=== PATIENT | female | born 1995 | race Caucasian/White ===

== ENCOUNTER 2017-11-14 17:04 | Emergency (ER) | payer OTHER ==
[2017-11-14] MEDS ORDERED: NS 0.9% 1000 ML* 1,000 ML IV ONE (18:04)
[2017-11-14 18:45] LABS: ABS Basophils 0 10^3/ul (0-0.2); ABS Eosinophils 0 10^3/ul (0-0.6); ABS Lymphocytes 0.6 10^3/ul (1.0-4.8); ABS Monocytes 0.7 10^3/ul (0-0.8); ABS Neutrophils 2.6 10^3/ul (1.5-7.7); ABS Nucleated RBC 0 10^3/ul; Eosinophil % 0.5 % (0-6); Hematocrit 37 % (35-47); Hemoglobin 12.7 g/dl (12.0-16.0); Lymphocyte % 14.1 % (25-47); Mean Corpuscular HGB Conc 34 g/dl (31-36); Mean Corpuscular Hemoglobin 30 pg (27-31); Mean Corpuscular Volume 88 fL (80-97); Mean Platelet Volume 8 um3 (7.4-10.4); Nucleated Red Blood Cells % 0; Platelet Count 118 10^3/ul (150-450); Red Blood Count 4.23 10^6/ul (4.0-5.4); Red Cell Distribution Width 12 % (10.5-15); White Blood Count 3.9 10^3/ul (3.5-10.8)
[2017-11-14 18:59] LABS: EGFR Non-African American 99.5 (>60)
--- NOTE | 2017-11-14 19:10 | RAD ---
INDICATION: Cough and fever following recent trip to [place] COMPARISON: None TECHNIQUE: PA and lateral views of the chest were obtained. FINDINGS: The heart and mediastinum are normal in size and contour. The lungs are grossly clear. There is no evidence of large pleural effusion. Visualized bones are normal for the patient's age. There is no radiographic evidence of free air beneath the diaphragm IMPRESSION: No radiographic evidence of acute cardiopulmonary disease.
--- NOTE | 2017-11-14 19:17 | ED ---
Influenza-Like Illness - HPI Summary HPI Summary: Patient here with flulike symptoms 5+ days. Started as dry scratchy throat. Had nausea with vomiting on Wednesday and - stomach sore but eating and drinking since. This has progressed into cough. Reports she had a fever Wednesday which has been coming and going. This fever triggers body wide achiness , pain, headache and worsening of sore throat. Currently she denies nausea vomiting or diarrhea, abdominal pain, chest pain, shortness of breath or headache, neck stiffness. She does admit when she gets coughing, her chest feels tight. She also reports some back pain in thoracic area. Furthermore she comments that she is "coughing up blood at times". Tried to discern if this was mucus tinged blood or clots of blood - she thinks it's the former but cannot be clear. She does admit a history of travel to [place] in the past 30 days. Also admits she took plan B on November 03 2017 - LMP Oct 17 2017 and feels like she might be getting it again soon. She denies calf pain and no previous clots or bleeding disorders. She she does smoke occasionally but has not smoked since her illness started. She did not receive the influenza vaccine. She is a student at [employer]. No h/o TB or other pulmonary d/o's. Imms are UTD otherwise. - History of Current Complaint Chief Complaint: EDFluSymptoms Time Seen by Provider: 11/14/17 17:38 Hx Obtained From: Patient - Allergy/Home Medications Allergies/Adverse Reactions: Allergies Allergy/AdvReac Type Severity Reaction Status Date / Time No Known Allergies Allergy Verified 11/14/17 17:22 PMH/Surg Hx/FS Hx/Imm Hx Previously Healthy: Yes Endocrine/Hematology History: Denies: Hx Anticoagulant Therapy, Hx Blood Disorders, Hx Diabetes, Hx Anemia , Hx Unexplained Bleeding, Hx Coagulopothy Cardiovascular History: Denies: Hx Congenital Heart Disease Respiratory History: Reports: Hx Pneumonia Denies: Hx Asthma, Hx Chronic Obstructive Pulmonary Disease (COPD), Hx Pulmonary Embolism GI History: Denies: Hx Cirrhosis, Hx Gastroesophageal Reflux Disease Musculoskeletal History: Denies: Hx Back Problems Psychiatric History: Denies: Hx Eating Disorder, Hx of Violent Episodes Against Others - Immunization History Immunizations Up to Date: Yes Infectious Disease History: No Infectious Disease History: Denies: Traveled Outside the [place] in Last 30 Days - Family History Known Family History: Positive: None - Social History Occupation: Student Lives: Dormitory/Roommates Alcohol Use: Occasionally Hx Substance Use: No Substance Use Type: Reports: None Hx Tobacco Use: Yes Smoking Status (MU): Current Some Day Smoker Review of Systems Positive: Fever, Chills Positive: Sore Throat, Nasal Discharge. Negative: Ear Ache Cardiovascular: Negative Positive: Cough. Negative: Shortness Of Breath Gastrointestinal: Negative Positive: no symptoms reported Positive: Arthralgia Skin: Negative Negative: Rash Neurological: Negative Psychological: Normal All Other Systems Reviewed And Are Negative: Yes Physical Exam Triage Information Reviewed: Yes Vital Signs On Initial Exam: Initial Vitals Temp Pulse Resp BP Pulse Ox 99 F 86 18 81/57 98 11/14/17 17:16 11/14/17 17:16 11/14/17 17:16 11/14/17 17:16 11/14/17 17:16 Vital Signs Reviewed: Yes Appearance: Positive: No Pain Distress, Ill-Appearing - appears fatigued, Thin Skin: Positive: Warm, Skin Color Reflects Adequate Perfusion, Dry - no rash observed Head/Face: Positive: Normal Head/Face Inspection - Sinuses NTTP Eyes: Positive: Normal, EOMI, Conjunctiva Clear. Negative: Conjunctiva Inflammed, Discharge ENT: Positive: Hearing grossly normal, Pharyngeal erythema - cobblestoning, TMs normal. Negative: Nasal congestion, Nasal drainage, Tonsillar swelling, Tonsillar exudate Neck: Positive: Supple, Nontender, Enlarged Nodes @ - shotty CC LNs B/L Respiratory/Lung Sounds: Positive: Clear to Auscultation, Breath Sounds Present. Negative: Decreased Breath Sounds, Rales, Rhonchi, Stridor, Tracheal Deviation, Wheezes Cardiovascular: Positive: Normal, RRR, Pulses are Symmetrical in both Upper and Lower Extremities, S1, S2. Negative: Murmur, Rub Abdomen Description: Positive: No Organomegaly, Soft, Other: - mild TTP over epigastrum and LUQ - no rebounding. Negative: Distended, Guarding Bowel Sounds: Positive: Present Musculoskeletal: Positive: Normal, Strength/ROM Intact Neurological: Positive: Normal, Sensory/Motor Intact, Alert, Oriented to Person Place, Time, CN Intact II-III Psychiatric: Positive: Normal Diagnostics - Vital Signs Vital Signs Temp Pulse Resp BP Pulse Ox 11/14/17 18:37 93/59 11/14/17 17:16 99 F 86 18 81/57 98 - Laboratory Lab Results: Lab Results 11/14/17 11/14/17 11/14/17 Range/Units 18:32 18:32 18:32 WBC 3.9 (3.5-10.8) 10^3/ul RBC 4.23 (4.0-5.4) 10^6/ul Hgb 12.7 (12.0-16.0) g/dl Hct 37 (35-47) % MCV 88 (80-97) fL MCH 30 (27-31) pg MCHC 34 (31-36) g/dl RDW 12 (10.5-15) % Plt Count 118 L (150-450) 10^3/ul MPV 8 (7.4-10.4) um3 Neut % (Auto) 66.7 (38-83) % Lymph % (Auto) 14.1 L (25-47) % [place] % (Auto) 18.2 H (1-9) % Eos % (Auto) 0.5 (0-6) % Baso % (Auto) 0.5 (0-2) % Absolute Neuts (auto) 2.6 (1.5-7.7) 10^3/ul Absolute Lymphs (auto) 0.6 L (1.0-4.8) 10^3/ul Absolute Monos (auto) 0.7 (0-0.8) 10^3/ul Absolute Eos (auto) 0 (0-0.6) 10^3/ul Absolute Basos (auto) 0 (0-0.2) 10^3/ul Absolute Nucleated RBC 0 10^3/ul Nucleated RBC % 0 D-Dimer, Quantitative (Less Than 230) ng/mL Sodium 134 (133-145) mmol/L Potassium 4.0 (3.5-5.0) mmol/L Chloride 102 (101-111) mmol/L Carbon Dioxide 24 (22-32) mmol/L Anion Gap 8 (2-11) mmol/L BUN 8 (6-24) mg/dL Creatinine 0.72 (0.51-0.95) mg/dL Est GFR ( Amer) 128.0 (>60) Est GFR (Non-Af Amer) 99.5 (>60) BUN/Creatinine Ratio 11.1 (8-20) Glucose 105 H (70-100) mg/dL Lactic Acid 1.7 (0.5-2.0) mmol/L Calcium 8.8 (8.6-10.3) mg/dL Magnesium 2.0 (1.9-2.7) mg/dL Total Bilirubin 0.40 (0.2-1.0) mg/dL AST 12 L (13-39) U/L ALT 6 L (7-52) U/L Alkaline Phosphatase 34 (34-104) U/L Total Protein 6.8 (6.4-8.9) g/dL Albumin 3.9 (3.2-5.2) g/dL Globulin 2.9 (2-4) g/dL Albumin/Globulin Ratio 1.3 (1-3) Beta HCG, Quant < 0.60 mIU/mL Group A Strep Rapid (Negative) 11/14/17 11/14/17 Range/Units 18:32 18:47 WBC (3.5-10.8) 10^3/ul RBC (4.0-5.4) 10^6/ul Hgb (12.0-16.0) g/dl Hct (35-47) % MCV (80-97) fL MCH (27-31) pg MCHC (31-36) g/dl RDW (10.5-15) % Plt Count (150-450) 10^3/ul MPV (7.4-10.4) um3 Neut % (Auto) (38-83) % Lymph % (Auto) (25-47) % [place] % (Auto) (1-9) % Eos % (Auto) (0-6) % Baso % (Auto) (0-2) % Absolute Neuts (auto) (1.5-7.7) 10^3/ul Absolute Lymphs (auto) (1.0-4.8) 10^3/ul Absolute Monos (auto) (0-0.8) 10^3/ul Absolute Eos (auto) (0-0.6) 10^3/ul Absolute Basos (auto) (0-0.2) 10^3/ul Absolute Nucleated RBC 10^3/ul Nucleated RBC % D-Dimer, Quantitative < 200 (Less Than 230) ng/mL Sodium (133-145) mmol/L Potassium (3.5-5.0) mmol/L Chloride (101-111) mmol/L Carbon Dioxide (22-32) mmol/L Anion Gap (2-11) mmol/L BUN (6-24) mg/dL Creatinine (0.51-0.95) mg/dL Est GFR ( Amer) (>60) Est GFR (Non-Af Amer) (>60) BUN/Creatinine Ratio (8-20) Glucose (70-100) mg/dL Lactic Acid (0.5-2.0) mmol/L Calcium (8.6-10.3) mg/dL Magnesium (1.9-2.7) mg/dL Total Bilirubin (0.2-1.0) mg/dL AST (13-39) U/L ALT (7-52) U/L Alkaline Phosphatase (34-104) U/L Total Protein (6.4-8.9) g/dL Albumin (3.2-5.2) g/dL Globulin (2-4) g/dL Albumin/Globulin Ratio (1-3) Beta HCG, Quant mIU/mL Group A Strep Rapid Negative (Negative) Result Diagrams: 11/14/17 18:32 02 18:32 Lab Statement: Any lab studies that have been ordered have been reviewed, and results considered in the medical decision making process. Flu Symptom Course/Dx - Course Course Of Treatment: Patient presents with flu-like symptoms for about a week. Her swabs and labs are non-impressive for dehydration, influenza, strep, mononucleosis. Her chest x-ray was clear of TB and pneumonia. Her d-dimer was negative. She initially appeared fatigued with a soft blood pressure so IV fluids were ordered. She appears to be doing well while lying on stretcher in the fast track. Suspect viral syndrome without definitive cause this point in time however she does attend college and has traveled recently which could have been lin for her to contract this. Encouraged supportive care with acetaminophen alternating with ibuprofen, plenty of fluids, electrolyte hydration with nourishment, rest. Advised to follow-up at [facility] if symptoms persists however if danger signs or symptoms present, she may return to the emergency department. - Diagnoses Provider Diagnoses: Viral syndrome Discharge - Discharge Plan Condition: Stable Disposition: HOME Patient Education Materials: Viral Syndrome (ED) Forms: *School Release Referrals: [facility] - Duy MARTINEZ [Primary Care Provider] - Additional Instructions: You appear to have a viral syndrome. This may take 7-14 days to run its course. Rest, stay hydrated with water, Gatorade, chicken broth, etc. He may alternate Tylenol with ibuprofen for fevers chills pain You may also implement any of the following to aid in your process of healing: Perform nasal washes/netti pot 2 times per day with 8 ounces of warm water plus a quarter teaspoon of salt or saline nasal spray as needed Perform throat gargles with warm salt water as needed Drink 60+ ounces of water daily Sleep 8+ hours per night Avoid dairy and sugar Drink hot herbal/decaf tea with lemon and honey Drink chicken broth (preferably organic, free range chicken) Using humidifier in your house, but especially near bed at night. You may also keep home temperature at 68F or less. Try facial steam with or without eucalyptus essential oil or Vicks vapor rub for decongestion Avoid smoke, candles, perfume/cologne, air freshener's, scented lotions, etc. Cough lozenges Delsym cough syrup to suppress her cough Consider taking vitamin D 3 5000 IUs and vitamin C 1000 mg every day daily during illness If you are started on antibiotics, start taking probiotics in between and after completion of antibiotics (i.e. yogurt and/or capsule of L acidophilus, L. Bifidus, L casei, etc. - make sure to get these from the refrigerated section as they are live active cultures) If her symptoms persist, he may follow up with [facility]. However if you experience shortness of breath chest pain fever despite taking ibuprofen or Tylenol vomiting diarrhea or severe abdominal pain, headache or neck stiffness ,return to the emergency department
[2017-11-14] MEDS ORDERED: Ibuprofen TAB* 600 MG PO ONE (20:57)
[2017-11-14 21:10] VITALS: BP 99/62
== END 2017-11-14 21:14 | disposition home or self-care (01) ==
LOC: ED 17:04
DX: B34.9 Viral infection, unspecified (principal)
CPT/HCPCS: 36415; 71046; 80053; 83605; 83735; 84702; 85025; 85379; 86308; 87502; 87651; 96360; 99283; A9270-GY

== ENCOUNTER 2018-01-18 13:07 | Emergency (ER) | payer OTHER ==
[2018-01-18] MEDS ORDERED: Acetaminophen TAB* 325 MG PO ONE (14:11)
[2018-01-18] MEDS ORDERED: Amoxicillin PO (*) 250 MG CAP PO ONE (14:11)
--- NOTE | 2018-01-18 14:14 | ED ---
Throat Pain/Nasal Congestion - HPI Summary HPI Summary: 22 female presents ED with complaints of fever, sore throat, body aches that have been ongoing for the past 2 days and worsening. Has experienced decreased appetite as well. States she last took Tylenol around 12 AM and ibuprofen 6 AM today. States fever has been 38.5C. No known sick contacts. Denies cough and congestion. No nausea or vomiting. No trouble breathing or chest pain. No rash. Did not have flu shot this year. No other past medical history other complaints. - History of Current Complaint Chief Complaint: EDFluSymptoms Time Seen by Provider: 01/18/18 13:33 Hx Obtained From: Patient Onset/Duration: Sudden Onset, Lasting Days, Still Present, Worse Since Severity: Moderate Associated Signs And Symptoms: Positive: Dysphagia Cough: None - Allergies/Home Medications Allergies/Adverse Reactions: Allergies Allergy/AdvReac Type Severity Reaction Status Date / Time No Known Allergies Allergy Verified 01/18/18 13:18 Home Medications: Home Medications FLUoxetine CAP* [PROzac CAP*] 20 mg PO DAILY 01/18/18 [History Confirmed ] Valproic Acid CAP(*) [Depakene CAP(*)] PO DAILY 01/18/18 [History] PMH/Surg Hx/FS Hx/Imm Hx Endocrine/Hematology History: Denies: Hx Anticoagulant Therapy, Hx Blood Disorders, Hx Diabetes, Hx Anemia , Hx Unexplained Bleeding Cardiovascular History: Denies: Hx Congenital Heart Disease Respiratory History: Reports: Hx Pneumonia Denies: Hx Asthma, Hx Chronic Obstructive Pulmonary Disease (COPD), Hx Pulmonary Embolism GI History: Denies: Hx Cirrhosis, Hx Gastroesophageal Reflux Disease Musculoskeletal History: Denies: Hx Back Problems Psychiatric History: Denies: Hx Eating Disorder, Hx of Violent Episodes Against Others - Surgical History Surgery Procedure, Year, and Place: None - Immunization History Date of Influenza Vaccine: did not receive Immunizations Up to Date: Yes Infectious Disease History: No Infectious Disease History: Denies: Traveled Outside the [place] in Last 30 Days - Family History Known Family History: Positive: None - Social History Alcohol Use: Occasionally Hx Substance Use: No Substance Use Type: Reports: None Hx Tobacco Use: Yes Smoking Status (MU): Current Some Day Smoker Review of Systems Positive: Fever, Chills Positive: Sore Throat Cardiovascular: Negative Respiratory: Negative Positive: Other - decreased appetite Positive: Myalgia Skin: Negative Positive: Headache All Other Systems Reviewed And Are Negative: Yes Physical Exam Triage Information Reviewed: Yes Vital Signs On Initial Exam: Initial Vitals Temp Pulse Resp BP Pulse Ox 99.9 F 103 16 99/63 98 01/18/18 13:13 01/18/18 13:13 01/18/18 13:13 01/18/18 13:13 01/18/18 13:13 Low-grade temp and tachycardia noted Vital Signs Reviewed: Yes Appearance: Positive: Well-Appearing, No Pain Distress, Well-Nourished Skin: Positive: Warm, Skin Color Reflects Adequate Perfusion, Dry. Negative: Cold, Cyanosis @, Pale, Erythema @ Head/Face: Positive: Normal Head/Face Inspection Eyes: Positive: Conjunctiva Clear ENT: Positive: Hearing grossly normal, Pharyngeal erythema - Moderate, TMs normal, Tonsillar swelling - Moderate bilateral, Tonsillar exudate - Moderate bilateral, Uvula midline - no peritonsillar abscess, Other - odor similar to strep infection noted Dental: Positive: Cervical Lymphadenopathy Neck: Positive: Nontender, Enlarged Nodes @ - tonsillar and anterior cervical lymphadenopathy Respiratory/Lung Sounds: Positive: Clear to Auscultation, Breath Sounds Present. Negative: Rales, Rhonchi, Wheezes Cardiovascular: Positive: Normal, RRR, Pulses are Symmetrical in both Upper and Lower Extremities. Negative: Murmur, Rub Abdomen Description: Positive: Nontender, No Organomegaly, Soft Bowel Sounds: Positive: Present Musculoskeletal: Positive: Normal, Strength/ROM Intact Neurological: Positive: Normal, Sensory/Motor Intact, Alert, Oriented to Person Place, Time, NV Bundle Intact Distally, Normal Gait Diagnostics - Vital Signs Vital Signs Temp Pulse Resp BP Pulse Ox 01/18/18 13:34 109 96 01/18/18 13:33 96/64 01/18/18 13:13 99.9 F 103 16 99/63 98 - Laboratory Lab Results: Lab Results 01/18/18 Range/Units 13:35 Influenza A (Rapid) Negative (Negative) Influenza B (Rapid) Negative (Negative) Lab Statement: Any lab studies that have been ordered have been reviewed, and results considered in the medical decision making process. Re-Evaluation - Re-Evaluation First Eval Re-Evaluation Time: 13:55 Change: Unchanged - Patient updated on results and agrees with plan and understands. EENT Course/Dx - Course Course Of Treatment: Influenza and strep cultures obtained influenza negative strep invalid however due to Centor criteria and physical exam findings we'll treat for strep with amoxicillin. Given first dose of amoxicillin and Tylenol while in ED. Continue at home increase fluid intake and get plenty or rest. Educated on hygiene precautions as it is very contagious. Chloraseptic Jackson and saltwater gargles. Aware worsening signs and symptoms watch out for follow- up with PCP. - Diagnoses Provider Diagnoses: Strep pharyngitis Discharge - Sign-Out/Discharge Documenting (check all that apply): Discharge - Discharge Plan Condition: Stable Disposition: HOME Prescriptions: Amoxicillin PO (*) [Amoxicillin 500 MG CAP*] 500 mg PO Q12H #19 cap Patient Education Materials: Strep Throat (ED) Referrals: [facility] - Duy MARTINEZ [Primary Care Provider] - Additional Instructions: Take prescribed medication as directed until entire dose is finished. Even if symptoms improve. Take today's second dose tonight before you go to bed as you received your first dose in ED. Increase fluid intake and get plenty rest. Continue ibuprofen/Tylenol alternating for fever and pain. Recommend Chloraseptic Jackson sold [id number] helps soothe sore throat. Saltwater gargles. Good oral hygiene. And changing toothbrush after 5-7 days of treatment. Do not share drinks as this is very contagious. Follow-up with PCP if any palpitations. Any new or worsening symptoms please seek medical attention. - Billing Disposition and Condition Condition: STABLE Disposition: HOME
[2018-01-18 14:29] VITALS: BP 111/68
== END 2018-01-18 14:48 | disposition home or self-care (01) ==
LOC: ED 13:07
DX: J02.0 Streptococcal pharyngitis (principal); Z72.0 Tobacco use
CPT/HCPCS: 87502; 99282; A9270-GY

== ENCOUNTER 2018-09-16 09:06 | Inpatient (IN) | payer OTHER ==
--- NOTE | 2018-09-16 09:19 | ED ---
Substance Abuse/Use - HPI Summary HPI Summary: Level 5 caveat: Unable to obtain complete HPI due to Unresponsiveness The pt is a 23 y/o female brought in by ambulance to [facility] c/o substance overdose.She last talked to her friend in [place] yesterday night but lost contact. During a safety check, EMS found her unresponsive in her apartment with several bottle pills suspected to be Depakene (Valproic Acid) and another unknown medication at the site. There was also a suicide note mostly in Prydeinig with a section in Monegasque saying Dont save me this will be mercy. The time of ingestion is unknown. The pt was breathing independently en route. EMS administered 4 Narcane (2 nasal and 2 IV). Home Medications Medication Instructions Recorded Confirmed Type Amoxicillin PO (*) [Amoxicillin 500 mg PO Q12H #19 cap 01/18/18 Rx 500 MG CAP*] FLUoxetine CAP* [PROzac CAP*] 20 mg PO DAILY 01/18/18 01/18/18 History Valproic Acid CAP(*) [Depakene PO DAILY 01/18/18 History CAP(*)] - History Of Current Complaint Chief Complaint: EDOverdose Stated Complaint: OVERDOSE Hx Obtained From: EMS Hx From Patient Unobtainable Due To: Other - Unresponsiveness Onset/Duration of Drug/ETOH Abuse: Hours Ingestion History: Approximate Time Of Ingestion - Unknown - Allergies/Home Medications Allergies/Adverse Reactions: Allergies Allergy/AdvReac Type Severity Reaction Status Date / Time No Known Allergies Allergy Verified 01/18/18 13:18 PMH/Surg Hx/FS Hx/Imm Hx Previously Healthy: No - Level 5 caveat: Unable to obtain complete PMHx due to Unresponsiveness Endocrine/Hematology History: Denies: Hx Anticoagulant Therapy, Hx Blood Disorders, Hx Diabetes, Hx Anemia , Hx Unexplained Bleeding Cardiovascular History: Denies: Hx Congenital Heart Disease Respiratory History: Reports: Hx Pneumonia Denies: Hx Asthma, Hx Chronic Obstructive Pulmonary Disease (COPD), Hx Pulmonary Embolism GI History: Denies: Hx Cirrhosis, Hx Gastroesophageal Reflux Disease Musculoskeletal History: Denies: Hx Back Problems Psychiatric History: Denies: Hx Eating Disorder, Hx of Violent Episodes Against Others - Cancer History Cancer Type, Location and Year: None - Surgical History Surgery Procedure, Year, and Place: None - Immunization History Date of Influenza Vaccine: did not receive - Family History Known Family History: Positive: Unknown - Social History Alcohol Use: Occasionally Hx Substance Use: No Substance Use Type: Reports: None Hx Tobacco Use: Yes Smoking Status (MU): Current Some Day Smoker Review of Systems - ROS Summary Review of Systems Summary: Level 5 caveat: Unable to obtain complete ROS due to Unresponsiveness Constitutional: Other - Positve: Unresponsiveness Respiratory: Negative - Dyspnea All Other Systems Reviewed And Are Negative: No Physical Exam - Summary Physical Exam Summary: Level 5 caveat: Unable to obtain complete PE due to Unresponsiveness Appearance: The patient is well-nourished in no acute distress and in no acute pain. Skin: The skin is warm and dry and skin color reflects adequate perfusion. HEENT: The head is normocephalic and atraumatic.Eyes are open.The pupils are pinpoint. Gag reflex present. Corneal reflex present. The conjunctivae are clear and without drainage. Nares are patent and without drainage. Mouth reveals moist mucous membranes and the throat is without erythema and exudate. The external ears are intact. The ear canals are patent and without drainage. The tympanic membranes are intact. Neck: The neck is supple with full range of motion and non-tender. There are no carotid bruits. There is no neck vein distension. Respiratory: Chest is non-tender. Lungs are clear to auscultation and breath sounds are symmetrical and equal. Cardiovascular: Heart is regular rate and rhythm. There is no murmur or rub auscultated. There is no peripheral edema and pulses are symmetrical and equal. Abdomen: The abdomen is soft and non-tender. There are normal bowel sounds heard in all four quadrants and there is no organomegaly palpated. Musculoskeletal: There is no back tenderness noted. Extremities are non-tender with full range of motion. There is good capillary refill. There is no peripheral edema or calf tenderness elicited. Neurological: Patient withdraws from pain.The patient has symmetrical motor strength in all four extremities. Cranial nerves are grossly intact. Deep tendon reflexes are symmetrical and equal in all four extremities. Psychiatric: The patient has an appropriate affect and does not exhibit any anxiety or depression. GCS:9 Triage Information Reviewed: Yes Vital Signs On Initial Exam: Initial Vital Signs Temp 98.2 F 09/16/18 09:17 Pulse 120 09/16/18 09:17 Resp 16 09/16/18 09:17 BP 105/58 09/16/18 09:17 Pulse Ox 100 09/16/18 09:17 Vital Signs Reviewed: Yes Diagnostics - Laboratory Result Diagrams: 09/16/18 09:10 09/16/18 09:10 Lab Statement: Any lab studies that have been ordered have been reviewed, and results considered in the medical decision making process. - Radiology CXR Radiology Interpretation Completed By: Radiologist Summary of Radiographic Findings: IMPRESSION: NO ACTIVE CARDIOPULMONARY DISEASE NOTED. The ED physician reviewed this radiology report. - CT Brain CT CT Interpretation Completed By: Radiologist Summary of CT Findings: IMPRESSION: NO ACUTE INTRACRANIAL PATHOLOGY. The ED physician reviewed this radiology report. - EKG 09:37 Cardiac Rate: Tachycardia - 126 bpm EKG Rhythm: Sinus Tachycardia Re-Evaluation - Re-Evaluation First Eval Re-Evaluation Time: 13:07 Change: Improved Second Eval Re-Evaluation Time: 13:30 Comment: Dr. Missy Parra saw the pt in the ED. Course/Dx - Course Course Of Treatment: Ms. Christensen was brought to the emergency department by ambulance and met in room 14 by myself. At that point she had her eyes open, would withdraw from pain and was not talking giving her a GCS score of 9. She was managing her airway well with a good gag reflex and corneal reflexes. Her pupils were pinpoint. There was no sign of trauma. Labs were obtained and generally within normal limits as was CT scan of her brain and chest x-ray. Her QTC was fine on ECG. 2 bottles were brought in with her. One contains some sort of sliced root and near the right pills. Left elbow has were labeled in Prydeinig with one word in Monegasque - Depekene. An Internet search reveals this to be Depakote. Our initial concern was that this was a valproic acid overdose and a Depakote level returned at 56 with an ammonia level elevated at 73. Recommendation by poison control was to give l-carnitine however we do not have this. I spoke with poison control about the need for transfer and they recommended repeating at 2 hours the ammonia and Depakote and if they were going down she would not need it. He repeat levels were 51 and 53. The patient did continue to remain in her comatose condition and as she was maintaining her airway well I held off on intubation. Dr. Parra was consulted and came to the department to evaluate the patient. Dr. Rhodes was consulted and also came to the department and evaluated the Patient. He recommended an EEG but felt that this was likely metabolic. - Diagnoses Provider Diagnoses: Overdose of drug/medicinal substance, Coma - Physician Notifications Discussed Care Of Patient With: Shweta Sanchez - Hospitalist Time Discussed With Above Provider: 11:10 Instructed by Provider To: MD Will See In ED - Critical Care Time Critical Care Time: 30-74 min Discharge - Sign-Out/Discharge Documenting (check all that apply): Patient Departure - Discharge Plan Condition: Stable Disposition: ADMITTED TO [facility] Referrals: [facility] - Duy MARTINEZ [Primary Care Provider] - - Billing Disposition and Condition Condition: STABLE Disposition: Admitted to [facility] - Attestation Statements Document Initiated by Scribe: Yes Documenting Scribe: Nevaeh Walker Provider For Whom Miguel is Documenting (Include Credential): Dr. Evert Olson MD Scribe Attestation: Nevaeh Brandon , scribed for Dr. Evert Olson MD on 09/16/18 at 1458. Scribe Documentation Reviewed: Yes Provider Attestation: The documentation as recorded by the stephanieibNevaeh osborne accurately reflects the service I personally performed and the decisions made by me, Dr. Evert Olson MD Status of Scribe Document: Viewed
[2018-09-16 09:21] LABS: ABS Basophils 0 10^3/ul (0-0.2); ABS Eosinophils 0.1 10^3/ul (0-0.6); ABS Lymphocytes 1.1 10^3/ul (1.0-4.8); ABS Monocytes 0.4 10^3/ul (0-0.8); ABS Nucleated RBC 0 10^3/ul; Eosinophil % 2.8 %; Hematocrit 36 % (35-47); Hemoglobin 12.3 g/dl (12.0-16.0); Lymphocyte % 23.1 %; Mean Corpuscular HGB Conc 35 g/dl (31-36); Mean Corpuscular Hemoglobin 30 pg (27-31); Mean Corpuscular Volume 87 fL (80-97); Nucleated Red Blood Cells % 0; Platelet Count 136 10^3/ul (150-450); Red Blood Count 4.09 10^6/ul (4.00-5.40); Red Cell Distribution Width 11 % (10.5-15); White Blood Count 4.7 10^3/ul (3.5-10.8)
[2018-09-16 09:38] LABS: EGFR Non-African American 119.5 (>60)
[2018-09-16 11:01] LABS: Urine Appearance Clear; Urine Blood 1+ (Negative); Urine Color Yellow; Urine Ketones Trace (Negative); Urine Protein Negative (Negative); Urine Red Blood Cell Trace(0-2/hpf) (Absent); Urine Specific Gravity 1.013 (1.010-1.030); Urine Urobilinogen Negative (Negative); Urine White Blood Cell Trace(0-5/hpf) (Absent)
[2018-09-16] MEDS: NS 0.9% 1000 ML* 1,000 ML IV ONE ×2 (11:32→13:27)
[2018-09-16] MEDS ORDERED: Naloxone* 0.4 MG/ML 1 ML VIAL IV ONE (13:03)
[2018-09-16] MEDS ORDERED: LORazepam INJ* 2 MG/ML 1 ML VIAL IV PUSH PRN (13:50)
[2018-09-16] MEDS ORDERED: KCL 20 MEQ/100 ML IVPREMIX* 20 MEQ/100 ML BAG IV ONE (13:56)
[2018-09-16] MEDS ORDERED: Famotidine IV * 20 MG in NS 0.9% 100 ML* 100 ML IVPB SCH (14:00)
[2018-09-16 14:17] LABS: INR 1.1 (0.77-1.02)
[2018-09-16] MEDS: Famotidine IV* 10 MG/ML 2 ML (20 mg) IV SCH (14:45)
[2018-09-16] MEDS: Heparin VIAL(*) 5000 UNITS/ML VIAL (FIVE THOUSAND) SUBCUT SCH ×2 (14:45→22:51)
[2018-09-16 16:32] LABS: ABS Basophils 0 10^3/ul (0-0.2); ABS Eosinophils 0.1 10^3/ul (0-0.6); ABS Lymphocytes 0.8 10^3/ul (1.0-4.8); ABS Monocytes 0.3 10^3/ul (0-0.8); ABS Neutrophils 5.1 10^3/ul (1.5-7.7); ABS Nucleated RBC 0 10^3/ul; Eosinophil % 1.1 %; Hematocrit 34 % (35-47); Hemoglobin 11.7 g/dl (12.0-16.0); Lymphocyte % 12.8 %; Mean Corpuscular HGB Conc 35 g/dl (31-36); Mean Corpuscular Hemoglobin 30 pg (27-31); Mean Corpuscular Volume 88 fL (80-97); Mean Platelet Volume 7.4 fL (7.4-10.4); Nucleated Red Blood Cells % 0; Platelet Count 117 10^3/ul (150-450); Red Blood Count 3.86 10^6/ul (4.00-5.40); Red Cell Distribution Width 12 % (10.5-15); White Blood Count 6.3 10^3/ul (3.5-10.8)
[2018-09-16 16:43] LABS: INR 1.02 (0.77-1.02)
[2018-09-16 16:48] LABS: EGFR Non-African American 124.2 (>60)
[2018-09-16] MEDS ORDERED: Propofol* 100 ML ONE (16:50)
[2018-09-16] MEDS ORDERED: Etomidate* 2 MG/ML 20 ML VIAL (40 MG) ONE (16:52)
[2018-09-16] MEDS ORDERED: Midazolam* 1 MG/ML 10 ML VIAL (10 MG) ONE (16:52)
[2018-09-16] MEDS ORDERED: Propofol* 10 MG/ML 20 ML BTL ONE ×2 (16:56→17:05)
[2018-09-16] MEDS ORDERED: Etomidate* 2 MG/ML 10 ML VIAL IV ONE (17:21)
--- NOTE | 2018-09-16 17:23 | CONS ---
NEUROLOGY CONSULTATION: DATE OF CONSULT: 09/16/18 LOCATION: She is in the emergency room to be admitted. REFERRING PHYSICIAN: Dr. Olson. CHIEF COMPLAINT: Unresponsiveness. HISTORY OF PRESENT ILLNESS: Danya Christensen is a 23-year-old young woman who was brought in by ambulance, comatose, earlier today. The history is very minimal. Apparently, she was talking to a friend and then stopped talking. It is not clear exactly when that happened. Somehow an ambulance was summoned and she was brought in to the emergency room, unresponsive. She was breathing and did not have a fever. I reviewed the only other hospital notes which are from 11/10/14 to 11/12/14 when she was admitted in the mental health unit with depression and suicidal ideation. She was discharged on Prozac. She was brought in this time with a vial of valproic acid. We do not know if she is on any other medications. She does have another vial that contains what looks like some herbal seeds or some other herbal component. The vials have uzbek writing on them. PAST MEDICAL HISTORY: The only past medical history I am aware of is what is in the record, which is that she has a history of depression with a mental health admission. MEDICATIONS: The only medication that I am aware that she is on currently is valproic acid, dose unknown. ALLERGIES: According to the computer record, she does not have any known allergies. REVIEW OF SYSTEMS: Currently not possible. PHYSICAL EXAMINATION: On examination, she is a slender woman with somewhat pale skin. Her temperature is 97.8, blood pressure on the monitor is about 108/70, heart rate is running about 120 and appears to be in sinus. Respiratory rate is varying from about 8 to 12 breaths per minute, oxygen saturation is 98% on supplemental oxygen. Skin is cool. I do not see any evidence of trauma or needle mlulins. Her neck is supple. Heart is in a regular rhythm and I do not hear murmurs. There are no cervical bruits. Oral mucosa is very moist, I do not see any evidence of oral trauma. Neurological Exam: Pupils react equally to light from about 3 down to about 2 mm. Eyes are divergent and somewhat roving. Funduscopic exam revealed sharp disks bilaterally. She has brisk corneal reflexes bilaterally, but no nasal tickle response. Facial musculature is symmetric in terms of corneal reflexes. She makes occasional restless movements of the arms and legs. At times, she has some extension and stiffening of the arms. Her jaw is tight. I am able to open it, however. With sternal rub, she does randomly move her limbs and does not posture. She does not respond to deep nail bed pressure in her limbs other than a weak withdrawal in the feet. With sternal rub, she weakly attempts to open the eyes and starts to open her mouth a little bit, but then becomes unresponsive again. Reflexes in the limbs are normal and symmetric and plantar responses are flexor. LABORATORY DATA/DIAGNOSTIC STUDIES: Includes a CT of the brain, which I reviewed and looks normal. There is no evidence of cerebral edema. Other laboratory data is notable for a toxicology screen, which is unremarkable. Depakote level was 51 this morning. Serum alcohol less than 10. Chemistries notable for borderline low potassium at 3.4 and a glucose of 125. Ionized calcium is mildly low at 1.07. Liver enzymes are normal. CBC is notable for a somewhat low platelet count at 136,000 and is otherwise normal. 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 She does not have any localizing signs nor meningismus. She does not have a fever or other signs of infection. She has a history of suicidal ideation and a mental health admission. She is on Depakote, but her level is not elevated and Depakote typically would not cause coma unless the level is extremely high. I have discussed my impression with Dr. Olson and Dr. Parra. They are monitoring her and deciding whether or not she requires intubation. We discussed the possibility of serotonin syndrome as one potential etiology. She was discharged on Prozac 3 years ago. I will continue to follow her along with you. I will order an EEG, but I have a low index of suspension that she is having seizures. [id number]/CPS #: [id number] [facility]
[2018-09-16] MEDS: Propofol* 100 ML IV SCH (17:30)
--- NOTE | 2018-09-16 17:31 | PN ---
Progress Note - Progress Note Date of Service: 09/16/18 - Procedure report Note: Procedure: Endotracheal intubation Consent: Waived, Emergently done for hypoxic resp failure Medications: 20mg Etomidate, 2 mg Versed, 100mcg Propofol Procedure: Video laryngoscope was utilized. Patient admitted for AMS, saturations have been worsening. Necessary equipment and medications were gathered. Patient was pre-oxygenated, saturations maintained at 100%. Grade 3 view was obtained. ETT couldnot be advanced as patient was very anterior. Procedure was terminated after 2 attempts and anesthesia was consulted. Patient was given paralytic by Dr [place] and was intubated with laryngoscope. End tidal CO2 was with good color change. Patient was connected to ventilator and was also started on Propofol drip.
[2018-09-16] MEDS: Chlorhexidine MOUTHWASH 0.12%* 15 ML UDC TOPICAL SCH ×2 (19:43→22:51)
[2018-09-17] MEDS ORDERED: NS 0.9% 1000 ML* 1,000 ML IV ONE (02:37)
[2018-09-17] MEDS: Chlorhexidine MOUTHWASH 0.12%* 15 ML UDC TOPICAL SCH ×3 (02:48→10:26)
[2018-09-17] MEDS: NS 0.9% 1000 ML* 1,000 ML IV SCH ×4 (03:42→22:38)
--- NOTE | 2018-09-17 03:45 | HP ---
HISTORY AND PHYSICAL: DATE OF ADMISSION: 09/16/18 REASON FOR ADMISSION: Altered mental status. CHIEF COMPLAINT: Brought in for altered mental status, unresponsiveness. HISTORY OF PRESENT ILLNESS: The patient is a 23-year-old female with history of major depression, admitted to psychiatric facility in 2014, has been on Prozac and Depakote. The patient was brought in to the emergency room for evaluation of altered mental status. The patient apparently was talking to a friend in [place] last night and early into this morning. The patient apparently was feeling depressed. The friend lost contact with the patient, called 911. The patient was found to be in altered mental status with suicide note next to her. The patient upon arrival to the emergency department was found to be not responding to verbal stimuli. She was responsive to painful stimuli. She is able to protect her airway. Patient did not require intubation at this time. Drug screen revealed negative for opiates, barbiturates, acetaminophen, valproic acid, amphetamines, benzos, cocaine, cannabinoids, alcohol. The patient had 2 bottles with her when she was brought in, one of which was with Depakote and other bottle with an unidentified probably herbal supplement. Prozac bottle was not seen accompanying the patient. She was in the emergency room in January of 2018 for flu-like symptoms at which time she was noted to be on Prozac 20 mg and Depakote. Poison Control was contacted as it was initially thought the patient might have overdosed on Depakote. Poison Control recommended L-carnitine, which was not available locally. Her ammonia level repeat was coming down to be normal. So, Poison Control has recommended no requirement of L-Carnitine and therefore, the patient was admitted to [facility]. No history could be obtained at this time as the patient is altered and unarousable. She would respond appropriately to painful stimuli with withdrawing extremities, would open eyes briefly. The patient also with tachycardia, receiving IV fluids. The patient also with some tremors in between. Her pupils are reactive. Funduscopic evaluation did not reveal any abnormality or signs of increased intracranial tension. Her electrolytes all within normal limits. She does not appear to be having any signs of sepsis. She does not appear to be showing any signs of MUSICAL PERFORMER infection. She is admitted to ICU for close monitoring. CT of the brain was obtained, which did not reveal any abnormality. Her chest x-ray did not reveal any airspace opacities. She is admitted to ICU for possible suicidal overdose with Prozac and possibly Depakote. PAST MEDICAL HISTORY: 1. Major depression. 2. Pneumonia. 3. Flu in the past. PAST SURGICAL HISTORY: Unable to be obtained at this time. ALLERGIES: No known drug allergies as per prior admission records. FAMILY HISTORY: Noncontributory to current complaint. SOCIAL HISTORY: The patient studies at [employer]. She is originally from [place]. Has history of occasional alcohol intake and occasional smoking history. No known drug abuse history. REVIEW OF SYSTEMS: Unable to obtain as the patient is altered. PHYSICAL EXAMINATION GENERAL: The patient is drowsy, responds with briefly opening eyes to painful stimuli. VITAL SIGNS: Temperature 97.8, blood pressure 101/70, O2 sat 98% on room air, heart rate 118 beats per minute, and tidal CO2 between 38 to 40. HEENT: Pupils equal and reactive to light, mucous membranes moist. LUNGS: Good air entry bilaterally. No rhonchi or wheeze. CARDIOVASCULAR: S1, S2 present, regular. Tachycardic. ABDOMEN: Soft, nontender, and nondistended. Bowel sounds present. EXTREMITIES: Normal range of motion. No edema. NEURO: Pupils equal and reactive to light. Corneal reflex intact, gag reflex intact, withdraws extremities to painful stimuli. No localizing signs, reflexes normal. SKIN: No rash. DIAGNOSTIC STUDIES/LAB DATA: WBC count 4.7, hemoglobin 12.3, hematocrit 36, platelet count 136. INR 1.10, PTT 29.2. Blood gas: pH of 7.42, PCO2 43, PO2 96, bicarb 27, O2 sat 99% on room air. Sodium 140, potassium 3.4, chloride 103 , bicarb 30, BUN 10, creatinine 0.6, anion gap within normal limits, glucose 125 , calcium 8.8, lactic acid 1.1. T. bili 0.6. Ionized calcium 1.07. AST 11, ALT 4, alk phos 35. Total protein 6.5. LDH 125. Ammonia 73 at 10, repeat ammonia level in 2 hours 53. CK 48. test negative. Urinalysis showed trace ketones, 1+ blood, and squamous epithelial cells, negative otherwise. Drug screen is negative. Chest x-ray on admission was personally reviewed by me Feliciano mckeon with no acute airspace opacities. CT scan of the brain did not reveal any acute pathology. EKG on admission showed sinus tachycardia with heart rate of 99. No acute ST changes. ASSESSMENT AND PLAN: 23-year-old female with history of major depression, admitted with possible overdose from suicidal attempt. Unclear the medication she might have overdosed on. As per record, she has been on Prozac 20 mg daily. Unclear if she overdosed on that Prozac and how much she took and when she has taken it. She is also found with bottles of valproic acid that she might be getting from [place] as the dose is not obvious from the bottle. There are a few tablets left in that bottle. Another bottle found next to her also had possibly a Romanian herbal medication. 1. Neuro: The patient with altered mental status. Currently responding to painful stimuli, slight improvement since admission. The patient is able to protect the airway at this time. Not requiring intubation at this time. Neurology consult obtained. CT brain reviewed with no acute intracranial abnormality. Suspect drug overdose, most likely Prozac is the cause. She was found with suicide note next to her. Will obtain EEG to evaluate for seizures. No acute intracranial pathology evident at this time. No signs of sepsis, LP not indicated, do no suspect meningitis. 2. Respiratory: The patient is able to protect the airway at this time, will hold off on intubation. Will monitor closely in the ICU. The patient on room air saturating 99% to 100%. Blood gas analysis did not reveal significant hypercapnia. Will consider intubation if respiratory status changes. Will continue to monitor end-tidal CO2s. Aspiration precautions, seizure precautions. 3. Cardiovascular: The patient is tachycardic, likely from medication overdose and also possibly dehydration. She has received 2 L of IV fluids since her arrival in the ED. Continue with IV hydration. Tachycardia is improving. No EKG changes are noted. Will monitor EKG q.4 hours for any changes in QT interval. 4. GI: Will be placing the patient n.p.o. for now with concern for aspiration given the mental status changes. 5. Heme: The patient with platelet count likely low at 136, her prior labs from November of 2017 also showed low platelets. No petechiae, no signs of acute bleeding. D-dimer less than 200. LDH is also normal. Do not suspect thrombotic thrombocytopenic purpura as the etiology of mental status changes. 6. Renal: Potassium low likely nutritional, repleted. No other electrolyte abnormalities noted. Lactate within normal limits. Will place Lorenzo catheter given mental status changes and risk for skin breakdown. 7. Musculoskeletal: No issues, frequent turning and positioning. 8. Psychosocial: The patient with history of depression, has been on Prozac with history of previous hospitalization for suicidal thoughts in 2014. Will need psychiatric followup as outpatient. Family not available at this time. The patient is full code. DVT prophylaxis and GI prophylaxis. IV access peripheral. TIME SPENT: Total amount of time spent in doing history and physical is 60 minutes. [id number]/CPS #: [id number] [facility]
[2018-09-17] MEDS: Propofol* 100 ML IV SCH (04:48)
--- NOTE | 2018-09-17 05:02 | EEG ---
ELECTROENCEPHALOGRAPHY: DATE OF STUDY: 09/16/18 - ROOM #[id number] REFERRING PHYSICIAN: Dr. Rhodes. LOCATION: She is in the emergency room to be admitted. CHIEF COMPLAINT: Coma. 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 The patient has been given Narcan without response. The patient is on Depakote for presumptive mood disorder. There is a history of mental health admission for suicidal ideation several years ago. REPORT: This 16-channel EEG is remarkable for background rhythms, consisting of a diffuse theta activity with intermingled beta rhythms. There is no anterior to posterior gradient. There is no evidence of sleep stages. Hemispheric activity is very symmetric. The patient moves a couple of times, but there are no clinical events otherwise. There are no focal or epileptiform discharges. CLINICAL INTERPRETATION: Abnormal EEG due to slowing and disorganization of background rhythms consistent with diffuse cerebral dysfunction. There are no focal or epileptiform features to this recording. [id number]/[facility] #: [id number] [facility]
[2018-09-17] MEDS: Heparin VIAL(*) 5000 UNITS/ML VIAL (FIVE THOUSAND) SUBCUT SCH (06:32)
[2018-09-17 07:07] LABS: Hematocrit 32 % (35-47); Hemoglobin 10.6 g/dl (12.0-16.0); Mean Corpuscular HGB Conc 34 g/dl (31-36); Mean Corpuscular Hemoglobin 30 pg (27-31); Mean Corpuscular Volume 89 fL (80-97); Red Blood Count 3.53 10^6/ul (4.00-5.40); Red Cell Distribution Width 12 % (10.5-15); White Blood Count 10.6 10^3/ul (3.5-10.8)
[2018-09-17 07:08] LABS: ABS Basophils 0 10^3/ul (0-0.2); ABS Eosinophils 0.1 10^3/ul (0-0.6); ABS Lymphocytes 0.9 10^3/ul (1.0-4.8); ABS Monocytes 0.8 10^3/ul (0-0.8); ABS Neutrophils 8.8 10^3/ul (1.5-7.7); ABS Nucleated RBC 0 10^3/ul; Eosinophil % 0.8 %; Lymphocyte % 8.8 %; Mean Platelet Volume 7.7 fL (7.4-10.4); Nucleated Red Blood Cells % 0; Platelet Count 82 10^3/ul (150-450)
[2018-09-17 07:23] LABS: EGFR Non-African American 115.1 (>60)
[2018-09-17] MEDS: Famotidine IV* 10 MG/ML 2 ML (20 mg) IV SCH (09:25)
[2018-09-17] MEDS ORDERED: Calcium Gluconate INJ* 1 GM in NS 0.9% 50 ML* 50 ML IVPB ONE (09:49)
[2018-09-17] MEDS ORDERED: Piperacillin/Tazobac ADVAN(*) 3.375 GM in NS 0.9% 100 ML* 100 ML IVPB SCH (10:30)
[2018-09-17] MEDS ORDERED: Magnesium Sulfate 2 GM IV* 2 GM/50 ML BAG IVPB ONE (10:52)
[2018-09-17] MEDS ORDERED: Piperacillin/Tazobac ADVAN(*) 3.375 GM in NS 0.9% 100 ML* 100 ML IVPB ONE (11:00)
--- NOTE | 2018-09-17 11:05 | PN ---
Date of Service: 09/17/18 - [facility] note Critical Care Services: Pt seen and examined at bedside. Labs, vitals, meds reviewed O/N events: Was intubated yesterday evening for airway protection Low grade fevers noted Received 1L fluid bolus for decreased UO overnight Vital Signs: Temp Pulse Resp BP SpO2 FiO2 99.5 F 98 14 116/89 100 30 09/17/18 10:30 09/17/18 10:30 09/17/18 08:00 09/17/18 10:30 09/17/18 10:30 09/17 04:00 Physical Exam: Gen: Pt awake since sedation was held HEENT: ETT+, PERRLA, No JVD Lungs: Clear to auscultation b/l Cardiac: S1, S2+, regular, tachycardia Abdomen: Soft, BS+ Extremities: No edema Neuro: Opens eyes spontaneously, able to follow commands Skin: No rash Fluid Balance (Past 24 Hours): I= 1704 O= 1045 Net 659 Intake & Output 09/15/18 09/16/18 09/17/18 09/18/18 06:59 06:59 06:59 06:59 Intake Total 1704 Output Total 1045 95 Balance 659 -95 Weight 121 lb 4.068 oz Intake: IV Fluids 1560 normal saline 1560 IVPB 77 potassium 77 Medicated IV 67 prop 67 Output: Lorenzo 1045 95 Labs: Laboratory Results - last 24 hr 09/16/18 09/16/18 09/16/18 09:10 09:10 09:58 WBC RBC Hgb Hct MCV MCH MCHC RDW Plt Count MPV Neut % (Auto) Lymph % (Auto) [place] % (Auto) Eos % (Auto) Baso % (Auto) Absolute Neuts (auto) Absolute Lymphs (auto) Absolute Monos (auto) Absolute Eos (auto) Absolute Basos (auto) Absolute Nucleated RBC Nucleated RBC % INR (Anticoag Therapy) 1.10 H APTT 29.2 ABG pH ABG pCO2 ABG pO2 ABG HCO3 ABG O2 Saturation ABG Base Excess Sodium 140 Potassium 3.4 L Chloride 103 Carbon Dioxide 30 Anion Gap 7 BUN 10 Creatinine 0.61 Est GFR ( Amer) 144.6 Est GFR (Non-Af Amer) 119.5 BUN/Creatinine Ratio 16.4 Glucose 125 H Calcium 8.8 Phosphorus Magnesium Total Bilirubin 0.60 AST 11 L ALT 4 L Alkaline Phosphatase 35 Ammonia Lactate Dehydrogenase 120 L Total Creatine Kinase 48 Total Protein 6.5 Albumin 3.8 Globulin 2.7 Albumin/Globulin Ratio 1.4 TSH Beta HCG, Quant < 0.60 Urine Color Yellow Urine Appearance Clear Urine pH 7.[address] 1[address]013 Urine Protein Negative Urine Ketones Trace A Urine Blood 1+ A Urine Nitrate Negative Urine Bilirubin Negative Urine Urobilinogen Negative Ur Leukocyte Esterase Negative Urine WBC (Auto) Trace(0-5/hpf) Urine RBC (Auto) Trace(0-2/hpf) Ur Squamous Epith Cells Present A Urine Bacteria Absent Urine Glucose Negative Salicylates < 2.50 Urine Opiates Screen Acetaminophen < 15 Ur Barbiturates Screen Valproic Acid 56.0 Ur Phencyclidine Scrn Ur Amphetamines Screen U Benzodiazepines Scrn Urine Cocaine Screen U Cannabinoids Screen Serum Alcohol < 10 09/16/18 09/16/18 09/16/18 09:58 10:35 11:47 WBC RBC Hgb Hct MCV MCH MCHC RDW Plt Count MPV Neut % (Auto) Lymph % (Auto) [place] % (Auto) Eos % (Auto) Baso % (Auto) Absolute Neuts (auto) Absolute Lymphs (auto) Absolute Monos (auto) Absolute Eos (auto) Absolute Basos (auto) Absolute Nucleated RBC Nucleated RBC % INR (Anticoag Therapy) APTT ABG pH 7.42 ABG pCO2 43 ABG pO2 96 ABG HCO3 27.3 ABG O2 Saturation 99.0 H ABG Base Excess 3.0 H Sodium Potassium Chloride Carbon Dioxide Anion Gap BUN Creatinine Est GFR ( Amer) Est GFR (Non-Af Amer) BUN/Creatinine Ratio Glucose Calcium Phosphorus Magnesium Total Bilirubin AST ALT Alkaline Phosphatase Ammonia TNP Lactate Dehydrogenase Total Creatine Kinase Total Protein Albumin Globulin Albumin/Globulin Ratio TSH Beta HCG, Quant Urine Color Urine Appearance Urine pH Ur Specific Loop Urine Protein Urine Ketones Urine Blood Urine Nitrate Urine Bilirubin Urine Urobilinogen Ur Leukocyte Esterase Urine WBC (Auto) Urine RBC (Auto) Ur Squamous Epith Cells Urine Bacteria Urine Glucose Salicylates Urine Opiates Screen None detected Acetaminophen Ur Barbiturates Screen None detected Valproic Acid Ur Phencyclidine Scrn None detected Ur Amphetamines Screen None detected U Benzodiazepines Scrn None detected Urine Cocaine Screen None detected U Cannabinoids Screen None detected Serum Alcohol 09/16/18 09/16/18 09/16/18 11:47 12:31 16:15 WBC RBC Hgb Hct MCV MCH MCHC RDW Plt Count MPV Neut % (Auto) Lymph % (Auto) [place] % (Auto) Eos % (Auto) Baso % (Auto) Absolute Neuts (auto) Absolute Lymphs (auto) Absolute Monos (auto) Absolute Eos (auto) Absolute Basos (auto) Absolute Nucleated RBC Nucleated RBC % INR (Anticoag Therapy) APTT ABG pH ABG pCO2 ABG pO2 ABG HCO3 ABG O2 Saturation ABG Base Excess Sodium Potassium Chloride Carbon Dioxide Anion Gap BUN Creatinine Est GFR ( Amer) Est GFR (Non-Af Amer) BUN/Creatinine Ratio Glucose Calcium Phosphorus Magnesium Total Bilirubin AST ALT Alkaline Phosphatase Ammonia 53 38 Lactate Dehydrogenase Total Creatine Kinase Total Protein Albumin Globulin Albumin/Globulin Ratio TSH Beta HCG, Quant Urine Color Urine Appearance Urine pH Ur Specific Loop Urine Protein Urine Ketones Urine Blood Urine Nitrate Urine Bilirubin Urine Urobilinogen Ur Leukocyte Esterase Urine WBC (Auto) Urine RBC (Auto) Ur Squamous Epith Cells Urine Bacteria Urine Glucose Salicylates Urine Opiates Screen Acetaminophen Ur Barbiturates Screen Valproic Acid 51.0 Ur Phencyclidine Scrn Ur Amphetamines Screen U Benzodiazepines Scrn Urine Cocaine Screen U Cannabinoids Screen Serum Alcohol 09/16/18 09/16/18 09/16/18 16:15 16:15 16:15 WBC 6.3 RBC 3.86 L Hgb 11.7 L Hct 34 L MCV 88 MCH 30 MCHC 35 RDW 12 Plt Count 117 L MPV 7.4 Neut % (Auto) 81.0 Lymph % (Auto) 12.8 Ell[place] % (Auto) 4.9 Eos % (Auto) 1.1 Baso % (Auto) 0.2 Absolute Neuts (auto) 5.1 Absolute Lymphs (auto) 0.8 L Absolute Monos (auto) 0.3 Absolute Eos (auto) 0.1 Absolute Basos (auto) 0 Absolute Nucleated RBC 0 Nucleated RBC % 0 INR (Anticoag Therapy) 1.02 APTT 27.3 ABG pH ABG pCO2 ABG pO2 ABG HCO3 ABG O2 Saturation ABG Base Excess Sodium 143 Potassium 4.1 Chloride 114 H Carbon Dioxide 25 Anion Gap 4 BUN 8 Creatinine 0.59 Est GFR ( Amer) 150.3 Est GFR (Non-Af Amer) 124.2 BUN/Creatinine Ratio 13.6 Glucose 104 H Calcium 8.1 L Phosphorus Magnesium Total Bilirubin 0.40 AST 12 L ALT 4 L Alkaline Phosphatase 40 Ammonia Lactate Dehydrogenase Total Creatine Kinase Total Protein 6.0 L Albumin 3.5 Globulin 2.5 Albumin/Globulin Ratio 1.4 TSH 2.19 Beta HCG, Quant Urine Color Urine Appearance Urine pH Ur Specific Loop Urine Protein Urine Ketones Urine Blood Urine Nitrate Urine Bilirubin Urine Urobilinogen Ur Leukocyte Esterase Urine WBC (Auto) Urine RBC (Auto) Ur Squamous Epith Cells Urine Bacteria Urine Glucose Salicylates Urine Opiates Screen Acetaminophen Ur Barbiturates Screen Valproic Acid Ur Phencyclidine Scrn Ur Amphetamines Screen U Benzodiazepines Scrn Urine Cocaine Screen U Cannabinoids Screen Serum Alcohol 09/17/18 09/17/18 06:55 06:55 WBC 10.6 RBC 3.53 L Hgb 10.6 L Hct 32 L MCV 89 MCH 30 MCHC 34 RDW 12 Plt Count 82 L MPV 7.7 Neut % (Auto) 83.1 Lymph % (Auto) 8.8 [place] % (Auto) 7.2 Eos % (Auto) 0.8 Baso % (Auto) 0.1 Absolute Neuts (auto) 8.8 H Absolute Lymphs (auto) 0.9 L Absolute Monos (auto) 0.8 Absolute Eos (auto) 0.1 Absolute Basos (auto) 0 Absolute Nucleated RBC 0 Nucleated RBC % 0 INR (Anticoag Therapy) APTT ABG pH ABG pCO2 ABG pO2 ABG HCO3 ABG O2 Saturation ABG Base Excess Sodium 142 Potassium 3.8 Chloride 115 H Carbon Dioxide 23 Anion Gap 4 BUN 6 Creatinine 0.63 Est GFR ( Amer) 139.3 Est GFR (Non-Af Amer) 115.1 BUN/Creatinine Ratio 9.5 Glucose 98 Calcium 7.7 L Phosphorus 2.7 Magnesium 1.7 L Total Bilirubin 0.40 AST 14 ALT 5 L Alkaline Phosphatase 34 Ammonia Lactate Dehydrogenase Total Creatine Kinase Total Protein 5.3 L Albumin 3.1 L Globulin 2.2 Albumin/Globulin Ratio 1.4 TSH Beta HCG, Quant Urine Color Urine Appearance Urine pH Ur Specific Loop Urine Protein Urine Ketones Urine Blood Urine Nitrate Urine Bilirubin Urine Urobilinogen Ur Leukocyte Esterase Urine WBC (Auto) Urine RBC (Auto) Ur Squamous Epith Cells Urine Bacteria Urine Glucose Salicylates Urine Opiates Screen Acetaminophen Ur Barbiturates Screen Valproic Acid Ur Phencyclidine Scrn Ur Amphetamines Screen U Benzodiazepines Scrn Urine Cocaine Screen U Cannabinoids Screen Serum Alcohol Studies: CXR: Air space opacity in RLL. Nutrition: NPO for extubation Impression: 23 y o f with h/o major depression on Prozac, Depakote a/w AMS after possible suicide attempt, unclear which agent she took, suspect possible overdose with Prozac Pt was intubated last night for air way protection 1.AMS-possible drug overdose in suicidal attempt 2.S/p intubation for airway protection 09/16/18 3.Thrombocytopenia 4. Anemia 5. Hypomagnesemia Plan: 1. Neuro/Psych: Cause of AMS likely overdose in suicidal attempt. Drug screen was negative. Mental status improved this am and was able to follow commands. Neurology consult appreciated. CT brain was negative. EEG showed diffuse slowing with no epileptiform activity. Has h/o major depression. Pt was obtaining meds from [facility] as per family- she was getting sodium valproate, Fluoxetine, Quetiapine, unclear which meds she might have overdosed on. Will need psych evaluation today. 2. Resp: Was intubated for airway protection yesterday. More alert this am. Was extubated this am. Pt with no resp distress. 3. CVS: Tachycardia- Unclear etiology- could be sec to drug overdose. No EKG changes. Received 3L IVF. 4. ID: Concern for possible aspiration. WBC count on upper limit of normal. Low grade fever. Ordered Zosyn for empiric coverage. 5. GI: Was NPO for extubation. Will start feeds when she is more alert and after bedside swallow evaluation 6. Renal: UO slowed last night, responded to fluid bolus. Electrolytes repleted 7. Haem: Thrombocytopenia- Unclear etiology, Platelets have been low in the past. Stopped Heparin and Pepcid. No active bleeding. 8. Musculoskeletal: No issues, OOB to chair when stable 9. Psychosocial: Family at bedside- pts aunt, cousin at bedside. They were updated of plan of care. They have been in touch with [facility] coordinators Full code Critical Care Time: 30 min
--- NOTE | 2018-09-17 12:24 | PN ---
Subjective Date of Service: 09/17/18 Length of Stay: 1 Days AMS, possible drug overdose Interval History: She was intubated yesterday for airway protection and desaturation, sedated with propofol overnight. This morning, I spoke with Dr. Parra who just extubated her. She is more awake now. Family from [place] and [place] are at the bedside. She has a history of a previous mental health hospitalization in the past and was apparently taking Prozac, Depakote and Seroquel which she obtained from [place]. We do not know how much she took but her Depakote level was low normal. She has had no seizure like activity. The family notes that she has been trying to talk but it was a difficult intubation yesterday and she may have some pain. She is starting to make sense in [place] per the family. She is following commands and remains somnolent. CT: No acute issues EEG: Slow and disorganized, consistent with encephalopathy Utox negative Ammonia normal TSH normal Objective Active Medications: Chlorhexidine Gluconate (Peridex Mouth Wash 0.12%*) 15 ml TOPICAL Q4H EVAN Last Admin: 09/17/18 10:26 Dose: 15 ml Propofol (Diprivan*) 100 mls @ 16.697 mls/hr IV .(Initial Rate) EVAN; Protocol Last Admin: 09/17/18 04:48 Dose: 4.9 mls/hr Sodium Chloride (Ns 0.9% 1000 Ml*) 1,000 mls @ 150 mls/hr IV PER RATE EVAN Last Admin: 09/17/18 08:25 Dose: 150 mls/hr Piperacillin Sod/Tazobactam (Sod 3.375 gm/ Sodium Chloride) 100 mls @ 25 mls/ hr IVPB Q8H [facility] Lorazepam (Ativan Inj*) 0.5 mg IV PUSH Q4H PRN PRN Reason: ANXIETY Vital Signs 09/16/18 09/16/18 09/16/18 12:20 12:30 12:40 Temperature Pulse Rate 115 110 110 Respiratory Rate Blood Pressure 99/63 102/72 95/73 (mmHg) O2 Sat by Pulse 98 98 98 Oximetry 09/16/18 09/16/18 09/16/18 12:50 13:00 13:01 Temperature Pulse Rate 112 114 115 Respiratory Rate Blood Pressure 99/68 108/69 (mmHg) O2 Sat by Pulse 98 99 98 Oximetry 12/07/18 12/07/18 12/07/18 13:10 13:20 13:30 Temperature Pulse Rate 114 129 134 Respiratory Rate Blood Pressure 106/68 117/76 110/73 (mmHg) O2 Sat by Pulse 98 99 99 Oximetry 09/16/18 09/16/18 09/16/18 13:40 13:50 14:00 Temperature Pulse Rate 125 123 124 Respiratory Rate Blood Pressure 119/77 118/80 113/74 (mmHg) O2 Sat by Pulse 97 98 98 Oximetry 09/16/18 09/16/18 09/16/18 14:01 14:10 14:20 Temperature Pulse Rate 125 123 123 Respiratory Rate Blood Pressure 103/71 121/76 (mmHg) O2 Sat by Pulse 99 98 97 Oximetry 09/16/18 09/16/18 09/16/18 14:30 14:40 14:50 Temperature Pulse Rate 121 119 124 Respiratory Rate Blood Pressure 117/77 114/81 111/76 (mmHg) O2 Sat by Pulse 98 98 98 Oximetry 09/16/18 09/16/18 09/16/18 15:00 15:01 15:10 Temperature Pulse Rate 118 117 115 Respiratory Rate Blood Pressure 124/85 121/77 (mmHg) O2 Sat by Pulse 98 98 98 Oximetry 09/16/18 09/16/18 09/16/18 15:20 15:30 15:50 Temperature Pulse Rate 113 115 138 Respiratory Rate Blood Pressure 122/78 116/78 103/83 (mmHg) O2 Sat by Pulse 99 98 97 Oximetry 09/16/18 09/16/18 09/16/18 15:58 16:00 16:01 Temperature 97.8 F Pulse Rate 125 123 128 Respiratory 16 13 Rate Blood Pressure 103/83 114/90 (mmHg) O2 Sat by Pulse 97 97 97 Oximetry 09/16/18 09/16/18 09/16/18 16:51 16:53 16:55 Temperature Pulse Rate 126 124 130 Respiratory Rate Blood Pressure 120/83 118/94 145/98 (mmHg) O2 Sat by Pulse 95 97 92 Oximetry 09/16/18 09/16/18 09/16/18 16:58 17:00 17:01 Temperature Pulse Rate 122 117 121 Respiratory 14 Rate Blood Pressure 106/69 133/90 (mmHg) O2 Sat by Pulse 100 98 96 Oximetry 1209/16/18 09/16/18 17:03 17:05 17:08 Temperature Pulse Rate 116 112 114 Respiratory Rate Blood Pressure 128/90 125/87 104/68 (mmHg) O2 Sat by Pulse 100 100 100 Oximetry 09/16/18 09/16/18 09/16/18 17:10 17:12 17:15 Temperature Pulse Rate 114 114 115 Respiratory Rate Blood Pressure 111/76 108/69 98/67 (mmHg) O2 Sat by Pulse 100 99 99 Oximetry 09/16/18 09/16/18 09/16/18 17:18 17:20 17:25 Temperature Pulse Rate 114 120 126 Respiratory Rate Blood Pressure 97/63 90/60 87/65 (mmHg) O2 Sat by Pulse 94 94 94 Oximetry 09/16/18 09/16/18 09/16/18 17:30 17:35 17:40 Temperature Pulse Rate 121 115 107 Respiratory Rate Blood Pressure 94/61 96/70 91/65 (mmHg) O2 Sat by Pulse 93 98 98 Oximetry 09/16/18 09/16/18 09/16/18 17:45 17:50 17:55 Temperature Pulse Rate 105 105 103 Respiratory Rate Blood Pressure 90/69 85/66 90/70 (mmHg) O2 Sat by Pulse 99 99 99 Oximetry 09/16/18 09/16/18 09/16/18 18:00 18:01 18:05 Temperature Pulse Rate 102 102 102 Respiratory 14 Rate Blood Pressure 87/67 87/67 (mmHg) O2 Sat by Pulse 100 100 100 Oximetry 09/16/18 09/16/18 09/16/18 18:10 18:15 18:20 Temperature Pulse Rate 102 102 104 Respiratory Rate Blood Pressure 88/66 87/66 101/74 (mmHg) O2 Sat by Pulse 100 100 100 Oximetry 09/16/18 09/16/18 09/16/18 18:25 18:30 18:35 Temperature Pulse Rate 108 109 110 Respiratory Rate Blood Pressure 102/71 108/77 101/72 (mmHg) O2 Sat by Pulse 100 100 100 Oximetry 09/16/18 09/16/18 09/16/18 18:40 18:45 18:50 Temperature Pulse Rate 110 110 112 Respiratory Rate Blood Pressure 95/74 104/77 105/77 (mmHg) O2 Sat by Pulse 100 100 100 Oximetry 09/16/18 09/16/18 09/16/18 18:55 19:00 19:01 Temperature Pulse Rate 111 112 112 Respiratory 14 Rate Blood Pressure 105/75 104/71 (mmHg) O2 Sat by Pulse 100 100 100 Oximetry 09/16/18 09/16/18 09/16/18 19:05 19:10 19:15 Temperature Pulse Rate 110 113 115 Respiratory Rate Blood Pressure 97/76 106/69 108/71 (mmHg) O2 Sat by Pulse 100 100 100 Oximetry 09/16/18 09/16/18 09/16/18 19:20 19:24 19:25 Temperature Pulse Rate 116 115 Respiratory Rate Blood Pressure 102/74 101/72 (mmHg) O2 Sat by Pulse 100 100 100 Oximetry 09/16/18 09/16/18 09/16/18 19:30 19:35 19:40 Temperature Pulse Rate 117 117 116 Respiratory Rate Blood Pressure 102/73 101/72 108/71 (mmHg) O2 Sat by Pulse 100 100 100 Oximetry 09/16/18 09/16/18 09/16/18 19:45 19:50 19:55 Temperature Pulse Rate 118 124 113 Respiratory Rate Blood Pressure 106/80 114/86 116/79 (mmHg) O2 Sat by Pulse 100 100 100 Oximetry 09/16/18 09/16/18 09/16/18 20:00 20:01 20:05 Temperature 97.3 F Pulse Rate 114 115 116 Respiratory 14 Rate Blood Pressure 106/81 104/81 (mmHg) O2 Sat by Pulse 100 100 100 Oximetry 09/16/18 09/16/18 09/16/18 20:10 20:15 20:20 Temperature 97.5 F 97.5 F 97.7 F Pulse Rate 117 115 116 Respiratory Rate Blood Pressure 114/79 108/78 103/78 (mmHg) O2 Sat by Pulse 100 100 100 Oximetry 09/16/18 09/16/18 09/16/18 20:25 20:30 20:35 Temperature 97.7 F 97.5 F 97.5 F Pulse Rate 118 118 118 Respiratory Rate Blood Pressure 102/80 106/78 105/79 (mmHg) O2 Sat by Pulse 100 100 100 Oximetry 09/16/18 09/16/18 09/16/18 20:40 20:45 20:50 Temperature 97.3 F 97.3 F 97.5 F Pulse Rate 119 120 120 Respiratory Rate Blood Pressure 114/74 110/76 101/77 (mmHg) O2 Sat by Pulse 100 100 100 Oximetry 09/16/18 09/16/18 09/16/18 20:55 21:00 21:01 Temperature 97.5 F 97.3 F 97.3 F Pulse Rate 120 120 120 Respiratory 14 Rate Blood Pressure 111/78 107/73 (mmHg) O2 Sat by Pulse 100 100 100 Oximetry 09/16/18 09/16/18 09/16/18 21:05 21:10 21:15 Temperature 97.2 F 97.3 F 97.5 F Pulse Rate 119 119 121 Respiratory Rate Blood Pressure 108/77 108/76 106/76 (mmHg) O2 Sat by Pulse 100 100 100 Oximetry 09/16/18 09/16/18 09/16/18 21:20 21:25 21:30 Temperature 98.1 F 97.9 F 97.9 F Pulse Rate 120 121 121 Respiratory Rate Blood Pressure 105/75 110/76 109/76 (mmHg) O2 Sat by Pulse 100 100 100 Oximetry 09/16/18 09/16/18 09/16/18 21:35 21:40 21:45 Temperature 97.7 F 97.9 F 97.7 F Pulse Rate 121 120 120 Respiratory Rate Blood Pressure 106/77 110/74 118/76 (mmHg) O2 Sat by Pulse 100 100 100 Oximetry 09/16/18 09/16/18 09/16/18 21:50 21:55 22:00 Temperature 97.9 F 97.9 F 98.4 F Pulse Rate 120 119 119 Respiratory 14 Rate Blood Pressure 111/77 103/75 108/74 (mmHg) O2 Sat by Pulse 100 100 100 Oximetry 09/16/18 09/16/18 09/16/18 22:01 22:05 22:10 Temperature 98.4 F 98.4 F 98.2 F Pulse Rate 120 120 119 Respiratory Rate Blood Pressure 114/75 110/76 (mmHg) O2 Sat by Pulse 100 100 100 Oximetry 09/16/18 09/16/18 09/16/18 22:15 22:20 22:25 Temperature 98.4 F 97.7 F 96.8 F Pulse Rate 121 128 Respiratory Rate Blood Pressure 103/72 119/88 142/109 (mmHg) O2 Sat by Pulse 100 100 Oximetry 09/16/18 09/16/18 09/16/18 22:33 22:36 22:39 Temperature 97.3 F 98.2 F 98.2 F Pulse Rate 126 126 124 Respiratory Rate Blood Pressure 99/67 105/63 (mmHg) O2 Sat by Pulse 100 100 100 Oximetry 09/16/18 09/16/18 09/16/18 22:40 22:45 22:50 Temperature 98.4 F 98.4 F 98.4 F Pulse Rate 124 121 118 Respiratory Rate Blood Pressure 98/65 107/69 105/69 (mmHg) O2 Sat by Pulse 100 100 100 Oximetry 09/16/18 09/16/18 09/16/18 22:55 23:00 23:01 Temperature 98.4 F 98.6 F 98.6 F Pulse Rate 122 118 117 Respiratory 14 Rate Blood Pressure 101/68 110/79 (mmHg) O2 Sat by Pulse 100 100 100 Oximetry 09/16/18 09/16/18 09/16/18 23:05 23:10 23:11 Temperature 98.6 F 98.8 F 98.8 F Pulse Rate 116 115 114 Respiratory Rate Blood Pressure 107/70 104/70 (mmHg) O2 Sat by Pulse 100 100 100 Oximetry 09/16/18 09/16/18 09/16/18 23:15 23:20 23:25 Temperature 98.8 F 98.8 F 98.8 F Pulse Rate 115 114 115 Respiratory Rate Blood Pressure 99/66 100/69 97/66 (mmHg) O2 Sat by Pulse 100 100 100 Oximetry 09/16/18 09/16/18 09/16/18 23:30 23:35 23:40 Temperature 98.8 F 99.0 F 99.0 F Pulse Rate 115 115 114 Respiratory Rate Blood Pressure 105/67 106/63 105/70 (mmHg) O2 Sat by Pulse 100 100 100 Oximetry 09/16/18 09/16/18 09/16/18 23:45 23:50 23:55 Temperature 99.0 F 99.0 F 99.1 F Pulse Rate 114 114 113 Respiratory Rate Blood Pressure 100/65 96/65 102/67 (mmHg) O2 Sat by Pulse 100 100 100 Oximetry 09/17/18 09/17/18 09/17/18 00:00 00:01 00:05 Temperature 99.1 F 99.1 F 99.1 F Pulse Rate 113 113 111 Respiratory 14 Rate Blood Pressure 98/64 108/76 (mmHg) O2 Sat by Pulse 100 100 100 Oximetry 09/17/18 09/17/18 09/17/18 00:10 00:15 00:20 Temperature 99.1 F 99.1 F 99.1 F Pulse Rate 111 111 112 Respiratory Rate Blood Pressure 102/69 99/73 104/69 (mmHg) O2 Sat by Pulse 100 100 100 Oximetry 09/17/18 09/17/18 09/17/18 00:25 00:30 00:45 Temperature 99.3 F 99.3 F 99.3 F Pulse Rate 110 111 110 Respiratory Rate Blood Pressure 95/73 98/70 99/69 (mmHg) O2 Sat by Pulse 100 100 100 Oximetry 09/17/18 09/17/18 09/17/18 01:00 01:01 01:15 Temperature 99.1 F 99.3 F 99.3 F Pulse Rate 110 110 110 Respiratory 14 Rate Blood Pressure 98/69 97/69 (mmHg) O2 Sat by Pulse 100 100 100 Oximetry 09/17/18 09/17/18 09/17/18 01:30 01:45 02:00 Temperature 99.5 F 99.5 F 99.5 F Pulse Rate 109 108 109 Respiratory 14 Rate Blood Pressure 100/74 103/72 101/69 (mmHg) O2 Sat by Pulse 100 100 100 Oximetry 09/17/18 09/17/18 09/17/18 02:01 02:15 02:30 Temperature 99.5 F 99.5 F 99.5 F Pulse Rate 108 109 108 Respiratory Rate Blood Pressure 102/72 107/72 (mmHg) O2 Sat by Pulse 100 100 100 Oximetry 09/17/18 09/17/18 09/17/18 02:45 03:00 03:01 Temperature 99.5 F 99.5 F 99.5 F Pulse Rate 109 107 108 Respiratory 14 Rate Blood Pressure 103/72 113/81 (mmHg) O2 Sat by Pulse 100 100 100 Oximetry 09/17/18 09/17/18 09/17/18 03:15 03:30 03:45 Temperature 99.3 F 99.1 F 99.0 F Pulse Rate 106 106 105 Respiratory Rate Blood Pressure 113/71 114/78 117/80 (mmHg) O2 Sat by Pulse 100 100 100 Oximetry 09/17/18 09/17/18 09/17/18 04:00 04:01 04:15 Temperature 99.0 F 99.0 F 98.8 F Pulse Rate 103 103 104 Respiratory 14 Rate Blood Pressure 119/81 106/77 (mmHg) O2 Sat by Pulse 100 100 100 Oximetry 09/17/18 09/17/18 09/17/18 04:30 04:45 05:00 Temperature 99.0 F 99.0 F 99.0 F Pulse Rate 104 104 102 Respiratory 14 Rate Blood Pressure 111/83 107/79 109/78 (mmHg) O2 Sat by Pulse 100 100 100 Oximetry 09/17/18 09/17/18 09/17/18 05:01 05:15 05:30 Temperature 99.0 F 99.0 F 99.0 F Pulse Rate 102 101 100 Respiratory Rate Blood Pressure 105/78 106/76 (mmHg) O2 Sat by Pulse 100 100 100 Oximetry 09/17/18 09/17/18 09/17/18 05:45 06:00 06:15 Temperature 99.0 F 99.0 F 98.8 F Pulse Rate 98 137 107 Respiratory 14 Rate Blood Pressure 106/76 119/78 115/82 (mmHg) O2 Sat by Pulse 100 100 100 Oximetry 09/17/18 09/17/18 09/17/18 06:30 06:45 07:00 Temperature 98.8 F 99.0 F 99.0 F Pulse Rate 110 106 107 Respiratory 15 Rate Blood Pressure 115/89 114/79 113/84 (mmHg) O2 Sat by Pulse 100 100 100 Oximetry 09/17/18 09/17/18 09/17/18 07:01 07:30 08:00 Temperature 99.0 F 99.1 F 99.3 F Pulse Rate 107 102 100 Respiratory 14 Rate Blood Pressure 112/84 105/72 (mmHg) O2 Sat by Pulse 100 100 100 Oximetry 09/17/18 09/17/18 09/17/18 08:01 08:30 09:00 Temperature 99.3 F 99.5 F 99.5 F Pulse Rate 99 96 95 Respiratory Rate Blood Pressure 99/74 109/73 (mmHg) O2 Sat by Pulse 100 100 100 Oximetry 09/17/18 09/17/18 09/17/18 09:01 09:30 10:00 Temperature 99.5 F 99.5 F 99.5 F Pulse Rate 96 95 100 Respiratory Rate Blood Pressure 113/79 115/75 (mmHg) O2 Sat by Pulse 100 100 100 Oximetry 09/17/18 09/17/1809/17/18 10:01 10:30 11:00 Temperature 99.5 F 99.5 F 99.5 F Pulse Rate 100 98 102 Respiratory Rate Blood Pressure 116/89 118/84 (mmHg) O2 Sat by Pulse 100 100 100 Oximetry 09/17/18 11:01 Temperature 99.5 F Pulse Rate 107 Respiratory Rate Blood Pressure (mmHg) O2 Sat by Pulse 100 Oximetry Intake and Output Last 24 Hours 09/15/18 09/16/18 09/17/18 09/18/18 06:59 06:59 06:59 06:59 Intake Total 1704 Output Total 1045 125 Balance 659 -125 Weight 121 lb 4.068 oz Intake: IV Fluids 1560 normal saline 1560 IVPB 77 potassium 77 Medicated IV 67 prop 67 Output: Lorenzo 1045 125 Oxygen Devices in Use Now: Mechanical Ventilator Neurology Exam: General: Somnolent but awakens HEENT: Normocephalic/atraumatic, sclera anicteric, mucous membranes moist Neck: Supple Chest: Clear to auscultation bilaterally Cardiovascular: Regular rate and rhythm without murmurs, rubs, gallops Abdomen: Soft Extremities: No clubbing, cyanosis, or edema Neurological Findings: Awakens and opens eyes, she is trying to verbalize but difficult to understand. Her family notes that she is starting to make some sense in [place]. She is following simple commands, squeezing hands, protruding tongue, wiggling toes. Cranial Nerve: PEERL, EOM intact, blinks to threat, no nystagmus, face symmetric bilaterally, tongue midline Motor: Follows simple commands, generally weak, does move all extremities, not antigravity at this point, no fasciculations noted, tone is done throughout Sensation: Grossly intact to pain Deep Tendon Reflex: 2+ symmetric in the upper/lower extremities, Babinski - down going No resting tremors, no myoclonic activity Result Diagrams: 09/17/18 06:55 09/17/18 06:55 Microbiology and Other Data: Microbiology 09/16/18 09:58 Urine Culture - Final Urine No Growth (<1,000 CFU/mL) 09/16/18 16:00 Nasal Screen MRSA (PCR) - Final Nasal Mrsa Not Detected Assessment/Plan 23 year old female, student at [employer] from [place] who has a history of Depression with at least one reported mental health hospitalization in 2014, apparently taking Seroquel, Prozac and Depakote which she gets from [place]. Presented with likely overdose of medication (s). --She is slowly improving and I suspect an encephalopathic presentation related to multiple drug ingestions --She is now extubated, protecting airway and starting to vocalize, following simple commands --No seizure like activity on EEG or during exam --If she took excessive Prozac, will need to watch for Serotonin syndrome although I see no evidence at this point --Seroquel can cause cardiac abnormalities, continue to monitor on Tele --Depakote level is normal. Hold for now. No prior history of seizures reported and this was likely being used for mood stabilization. --No evidence for a [employer] infection at this point. If her condition worsens, I will consider a LP but low yield at this point. --I expect continued improvement over the next several days --Will need psychiatric evaluation once she wakes up. I will continue to follow along but no new neurologic recommendations at this point.
[2018-09-17] MEDS: ZOSYN 3.375 GM Q8H per EXTENDED INFUSION IVPB SCH ×4 (15:33→23:39)
[2018-09-17] MEDS ORDERED: Acetaminophen SUPP* 650 MG SUPP ONE (18:07)
[2018-09-17] MEDS ORDERED: Acetaminophen SUPP* 650 MG SUPP PR PRN (18:16)
[2018-09-18] MEDS: NS 0.9% 1000 ML* 1,000 ML IV SCH (05:18)
[2018-09-18 05:48] LABS: ABS Basophils 0 10^3/ul (0-0.2); ABS Eosinophils 0.2 10^3/ul (0-0.6); ABS Monocytes 0.4 10^3/ul (0-0.8); ABS Neutrophils 6.5 10^3/ul (1.5-7.7); ABS Nucleated RBC 0 10^3/ul; Eosinophil % 2.1 %; Hematocrit 33 % (35-47); Hemoglobin 11.2 g/dl (12.0-16.0); Lymphocyte % 12.5 %; Mean Corpuscular HGB Conc 34 g/dl (31-36); Mean Corpuscular Hemoglobin 30 pg (27-31); Mean Corpuscular Volume 88 fL (80-97); Mean Platelet Volume 7.3 fL (7.4-10.4); Nucleated Red Blood Cells % 0; Platelet Count 98 10^3/ul (150-450); Red Blood Count 3.71 10^6/ul (4.00-5.40); Red Cell Distribution Width 12 % (10.5-15); White Blood Count 8.1 10^3/ul (3.5-10.8)
[2018-09-18 06:07] LABS: EGFR Non-African American 98.7 (>60)
[2018-09-18] MEDS ORDERED: Dextrose 50% Syringe 50 ML* 25 GM/50 ML SYRINGE ONE (06:17)
[2018-09-18] MEDS ORDERED: Dextrose 50% Syringe 50 ML* 25 GM/50 ML SYRINGE IV PUSH ONE (06:30)
[2018-09-18] MEDS: ZOSYN 3.375 GM Q8H per EXTENDED INFUSION IVPB SCH ×6 (06:37→22:24)
[2018-09-18] MEDS ORDERED: D5LR 20 MEQ KCL 1000 ML BAG* 1,000 ML IV SCH (07:00)
--- NOTE | 2018-09-18 08:47 | PN ---
Progress Note - Progress Note Date of Service: 09/18/18 - Transfer note Note: Transfer note: Date of admission to ICU 09/16/18 Reason for admission: AMS, drug overdose in suicide attempt, unclear which medication Pt seen and examined at bedside. Overnight events: Pt had low glucose of 54 on BMP. Pt was alert and asymptomatic at that time. Pt received D50 and fluids were changed to D5NS. Pt told RN that she took some one else meds, didnot name them Mental status has been improving, has been making more sense No EKG changes. Had fever spike that responded to Tylenol. Cultures sent PMHx: Major depression, thrombocytopenia PSx: None All: NKDA Social Hx: From [place], student at [employer]. Social smoking and drinking FHx: Non-contributory Active Medications Generic Name Dose Route Start Last Admin Trade Name Freq PRN Reason Stop Dose Admin Acetaminophen 650 mg 09/17/18 18:16 09/17/18 18:17 Tylenol Supp* WA 650 mg Q6H PRN Administration PAIN/FEVER Piperacillin Sod/Tazobactam 100 mls @ 25 mls/hr 09/17/18 15:00 09/18/18 06:37 Sod 3.375 gm/ Sodium Chloride IVPB 25 mls/hr Q8H EVAN Administration Potassium Cl/Dextrose/Lact Ringer's 1,000 mls @ 125 mls/hr 09/18/18 07:00 06/28 06:32 D5lr 20 Meq Kcl 1000 Ml Bag* IV 125 mls/hr PER RATE EVAN Administration Lorazepam 0.5 mg 09/16/18 13:50 Ativan Inj* IV PUSH Q4H PRN ANXIETY Vital Signs Temp Pulse Resp BP Pulse Ox 98.6 F 79 22 112/77 97 09/18/18 07:01 09/18/18 07:01 09/18/18 07:59 09/18/18 07:00 09/18/18 07:01 O/E: Pt in NAD HEENT: PERRLA, no JVD Lungs: Good a/e b/l, no wheeze CVS: S1, S2+, regular Abd: Soft, BS+ Ext: No edema Neuro: No focal deficits, alert, awake, orientedx3, able to follow commands, speaks in low voice Skin: No rash Laboratory Results - last 24 hr 09/17/18 09/17/1818 06:55 06:55 10:33 WBC 10.6 RBC 3.53 L Hgb 10.6 L Hct 32 L MCV 89 MCH 30 MCHC 34 RDW 12 Plt Count 82 L MPV 7.7 Neut % (Auto) 83.1 Lymph % (Auto) 8.8 [place] % (Auto) 7.2 Eos % (Auto) 0.8 Baso % (Auto) 0.1 Absolute Neuts (auto) 8.8 H Absolute Lymphs (auto) 0.9 L Absolute Monos (auto) 0.8 Absolute Eos (auto) 0.1 Absolute Basos (auto) 0 Absolute Nucleated RBC 0 Nucleated RBC % 0 Sodium 142 Potassium 3.8 Chloride 115 H Carbon Dioxide 23 Anion Gap 4 BUN 6 Creatinine 0.63 Est GFR ( Amer) 139.3 Est GFR (Non-Af Amer) 115.1 BUN/Creatinine Ratio 9.5 Glucose 98 Calcium 7.7 L Phosphorus 2.7 Magnesium 1.7 L Total Bilirubin 0.40 AST 14 ALT 5 L Alkaline Phosphatase 34 Ammonia 34 Total Protein 5.3 L Albumin 3.1 L Globulin 2.2 Albumin/Globulin Ratio 1.4 09/18/18 09/18/18 05:25 05:25 WBC 8.1 RBC 3.71 L Hgb 11.2 L Hct 33 L MCV 88 MCH 30 MCHC 34 RDW 12 Plt Count 98 L MPV 7.3 L Neut % (Auto) 80.3 Lymph % (Auto) 12.5 [place] % (Auto) 4.7 Eos % (Auto) 2.1 Baso % (Auto) 0.4 Absolute Neuts (auto) 6.5 Absolute Lymphs (auto) 1.0 Absolute Monos (auto) 0.4 Absolute Eos (auto) 0.2 Absolute Basos (auto) 0 Absolute Nucleated RBC 0 Nucleated RBC % 0 Sodium 137 Potassium 3.5 Chloride 110 Carbon Dioxide 18 L Anion Gap 9 BUN 7 Creatinine 0.72 Est GFR ( Amer) 119.4 Est GFR (Non-Af Amer) 98.7 BUN/Creatinine Ratio 9.7 Glucose 54 L Calcium 8.0 L Phosphorus Magnesium Total Bilirubin 0.50 AST 15 ALT 6 L Alkaline Phosphatase 38 Ammonia Total Protein 5.8 L Albumin 3.2 Globulin 2.6 Albumin/Globulin Ratio 1.2 Tests during ICU stay: CXR: Air space opacity in rt base EEG: No epileptiform activity. I/R: 23 y o f with h/o depression, has been on Prozac, Seroquel and Valproic acid that she has been obtaining from [place] with h/o hospitalization to [facility] in 2014 for depression with suicidal ideation. Pt was brought in for AMS, was intubated for airway protection on evening of her admission 09/16/18, was extubated 09/17/19 Patients mental status has been improving since yesterday, starting to make more sense No seizures on EEG No EKG abnormalities. Was tachycardic on admission, normal sinus rhythm this am Was intubated for airway protection, extubated and doing well from resp perspective, currently on RA Concern for possible aspiration PNA, is on Zosyn day#2 Was found to have low glucose on BMP, was given D50 and was started on D5LR. To monitor bl sugars closely Clear liquid diet started Thrombocytopenia, has h/o low paltelets in the past. No active bleeding. D/deniz Pepcid and Heparin SQ Is on sequential compression devices and will be out of bed to chair and ambulate as tolerated when more stable Anemia, normocytic- Stable Hypocalcemia- improved with replacement DVT px: SCDs OOB to chair Can be transferred to medical floor, telemetry
--- NOTE | 2018-09-18 12:48 | PN ---
Subjective Date of Service: 09/18/18 Length of Stay: 2 Days Neurology is following for AMS, drug overdose Interval History: She developed some asymptomatic hypoglycemia yesterday, otherwise has been slowly improving. Low grade temp yesterday but no evidence of infection, blood cultures drawn. She is now more awake and conversational although the nurse at the beside notes some confusion at times and her speech remains intermittently dysarthric. She reports to me that she took some medication, possibly a friend' s, but cannot remember what it was. She is very concerned about getting out of the hospital and is concerned about her school work. She is a student at [employer]. Denies any pain or other symptoms at this time but does remain somnolent. She does confirm to me no history of prior seizures Objective Active Medications: Acetaminophen (Tylenol Supp*) 650 mg ND Q6H PRN PRN Reason: PAIN/FEVER Last Admin: 09/17/18 18:17 Dose: 650 mg Piperacillin Sod/Tazobactam (Sod 3.375 gm/ Sodium Chloride) 100 mls @ 25 mls/ hr IVPB Q8H [facility] Last Admin: 09/18/18 06:37 Dose: 25 mls/hr Potassium Cl/Dextrose/Lact Ringer's (D5lr 20 Meq Kcl 1000 Ml Bag*) 1,000 mls @ 125 mls/hr IV PER RATE [facility] Last Admin: 09/18/18 06:32 Dose: 125 mls/hr Lorazepam (Ativan Inj*) 0.5 mg IV PUSH Q4H PRN PRN Reason: ANXIETY Vital Signs 09/17/18 09/17/18 09/17/18 13:00 13:01 14:00 Temperature 98.6 F 98.6 F 99.0 F Pulse Rate 109 109 118 Respiratory 20 19 22 Rate Blood Pressure 126/86 128/83 (mmHg) O2 Sat by Pulse 99 99 99 Oximetry 09/17/18 09/17/18 09/17/18 14:01 15:00 15:01 Temperature 99.0 F 99.3 F 99.3 F Pulse Rate 114 110 109 Respiratory 22 16 22 Rate Blood Pressure 130/92 (mmHg) O2 Sat by Pulse 100 100 100 Oximetry 09/17/18 09/17/18 09/17/18 16:00 16:01 17:00 Temperature 99.9 F 99.9 F 100.0 F Pulse Rate Respiratory 17 25 19 Rate Blood Pressure 125/85 132/96 (mmHg) O2 Sat by Pulse 98 99 98 Oximetry 09/17/18 09/17/18 09/17/18 17:01 18:00 18:01 Temperature 100.0 F 100.6 F 100.6 F Pulse Rate Respiratory 18 30 21 Rate Blood Pressure 124/100 (mmHg) O2 Sat by Pulse 96 98 100 Oximetry 09/17/18 09/17/18 09/17/18 19:00 20:00 21:00 Temperature 100.4 F 100.4 F 99.9 F Pulse Rate 94 89 88 Respiratory 18 19 17 Rate Blood Pressure (mmHg) O2 Sat by Pulse 100 99 100 Oximetry 09/17/18 09/17/18 09/17/18 21:11 21:30 22:00 Temperature 100.0 F 100.0 F 99.9 F Pulse Rate 92 94 89 Respiratory 17 23 23 Rate Blood Pressure 131/84 115/86 129/90 (mmHg) O2 Sat by Pulse 99 99 100 Oximetry 09/17/18 09/17/18 09/17/18 22:01 22:30 23:00 Temperature 99.9 F 99.9 F 99.9 F Pulse Rate 88 87 85 Respiratory 22 21 22 Rate Blood Pressure 129/93 126/80 (mmHg) O2 Sat by Pulse 99 99 100 Oximetry 09/17/18 09/17/18 09/18/18 23:01 23:30 00:00 Temperature 99.9 F 99.9 F 99.7 F Pulse Rate 84 92 84 Respiratory 15 18 21 Rate Blood Pressure 118/83 127/83 (mmHg) O2 Sat by Pulse 99 99 100 Oximetry 09/18/18 09/18/18 09/18/18 00:02 00:30 01:00 Temperature 99.7 F 99.5 F 99.5 F Pulse Rate 97 86 81 Respiratory 16 18 13 Rate Blood Pressure 128/89 121/87 (mmHg) O2 Sat by Pulse 99 100 100 Oximetry 09/18/18 09/18/18 09/18/18 01:01 01:30 02:00 Temperature 99.5 F 99.5 F 99.5 F Pulse Rate 79 85 91 Respiratory 16 29 30 Rate Blood Pressure 114/89 (mmHg) O2 Sat by Pulse 100 100 100 Oximetry 09/18/18 09/18/18 09/18/18 02:01 02:30 03:00 Temperature 99.5 F 99.0 F 99.3 F Pulse Rate 85 93 85 Respiratory 24 14 21 Rate Blood Pressure 117/76 115/78 118/87 (mmHg) O2 Sat by Pulse 100 100 100 Oximetry 09/18/18 09/18/18 09/18/18 03:01 03:30 03:44 Temperature 99.3 F 99.5 F Pulse Rate 87 85 Respiratory 19 23 Rate Blood Pressure 119/80 (mmHg) O2 Sat by Pulse 100 100 100 Oximetry 09/18/18 09/18/18 09/18/18 04:00 04:01 04:30 Temperature 99.5 F 99.5 F 99.3 F Pulse Rate 84 88 84 Respiratory 22 24 22 Rate Blood Pressure 112/84 116/77 (mmHg) O2 Sat by Pulse 99 99 96 Oximetry 09/18/18 09/18/18 09/18/18 05:00 05:01 05:30 Temperature 99.3 F 99.3 F 99.1 F Pulse Rate 84 83 89 Respiratory 16 20 21 Rate Blood Pressure 112/71 112/70 (mmHg) O2 Sat by Pulse 96 96 96 Oximetry 09/18/18 09/18/18 09/18/18 06:00 06:01 06:30 Temperature 99.0 F 99.0 F 98.8 F Pulse Rate 84 84 86 Respiratory 19 22 20 Rate Blood Pressure 105/73 126/75 (mmHg) O2 Sat by Pulse 97 97 97 Oximetry 09/18/18 09/18/18 09/18/18 07:00 07:01 07:30 Temperature 98.6 F 98.6 F 98.4 F Pulse Rate 79 79 75 Respiratory 20 20 20 Rate Blood Pressure 112/77 108/79 (mmHg) O2 Sat by Pulse 96 97 97 Oximetry 09/18/18 09/18/18 09/18/18 07:59 08:00 08:01 Temperature 98.2 F 98.2 F Pulse Rate 75 72 Respiratory 22 21 23 Rate Blood Pressure 109/85 (mmHg) O2 Sat by Pulse 98 98 Oximetry 09/18/18 09/18/18 09/18/18 08:30 09:00 09:01 Temperature 98.1 F 98.1 F 98.1 F Pulse Rate 71 82 85 Respiratory 22 22 17 Rate Blood Pressure 114/89 120/82 (mmHg) O2 Sat by Pulse 98 98 99 Oximetry 09/18/18 09/18/18 09/18/18 09:30 10:00 10:30 Temperature 98.2 F 98.4 F 98.6 F Pulse Rate 76 80 80 Respiratory 20 19 17 Rate Blood Pressure 118/83 112/79 110/77 (mmHg) O2 Sat by Pulse 98 100 98 Oximetry 09/18/18 09/18/18 09/18/18 11:00 11:30 12:00 Temperature 98.4 F Pulse Rate 78 81 Respiratory 12 23 24 Rate Blood Pressure 119/92 118/89 (mmHg) O2 Sat by Pulse 93 98 Oximetry 09/18/18 12:01 Temperature Pulse Rate 93 Respiratory 24 Rate Blood Pressure (mmHg) O2 Sat by Pulse 98 Oximetry Intake and Output Last 24 Hours 09/16/18 09/17/18 09/18/18 09/19/18 06:59 06:59 06:59 06:59 Intake Total 1704 3865 220 Output Total 1045 2755 1415 Balance 659 1110 -1195 Weight 121 lb 4.068 oz 124 lb 5.451 oz Intake: IV Fluids 1560 3558 normal saline 1560 3558 IVPB 77 215 abx 110 potassium 77 zosyn 105 Medicated IV 67 12 prop 67 12 Oral 80 220 Output: Urine 600 Lorenzo 1045 2755 815 Oxygen Devices in Use Now: None Neurology Exam: General: Somnolent but awakens, oriented to person, "[place]." No photophobia or phonophobia HEENT: Normocephalic/atraumatic, sclera anicteric, mucous membranes moist Neck: Supple, no nuchal rigidity Chest: Clear to auscultation bilaterally Cardiovascular: Regular rate and rhythm without murmurs, rubs, gallops Abdomen: Soft, non-tender Extremities: No clubbing, cyanosis, or edema. Skin is warm and dry Neurological Findings: Speech: Fluent with intermittent dysarthria, confused at times. Follows all commands Cranial Nerve: PEERL, EOM intact, VFF, no nystagmus, face symmetric bilaterally , facial sensation intact, hearing intact to finger rub bilaterally, palate elevates symmetrically, tongue midline Motor: Moving all extremities with good resistance x 4 Sensation: intact to LT/PP bilaterally upper and lower extremities Deep Tendon Reflex: 1+ symmetric in the upper/lower extremities, Babinski - down going No resting tremor or action tremor Result Diagrams: 09/18/18 05:25 09/18/18 05:25 Microbiology and Other Data: Microbiology 09/16/18 09:58 Urine Culture - Final Urine No Growth (<1,000 CFU/mL) 09/16/18 16:00 Nasal Screen MRSA (PCR) - Final Nasal Mrsa Not Detected Assessment/Plan 23 year old female, student at [employer] from [place] who has a history of Depression with at least one reported mental health hospitalization in 2014, apparently taking Seroquel, Prozac and Depakote which she gets from [facility]. Presented with likely overdose of medication (s). --Continues to slowly improve with time. --No seizure like activity on EEG or during exam. She denies previous history of seizures. --Unclear what she took but no evidence of hemodynamic instability or Serotonin syndrome. --No evidence for a [employer] infection at this point, no further workup at this time. --Thrombocytopenia: Known condition. No evidence of TTP --I expect continued improvement over the next several days --Plan for psychiatric evaluation once more awake and alert
--- NOTE | 2018-09-18 17:57 | PN ---
Progress Note - Progress Note Date of Service: 09/18/18 Note: Attempted to interview patient for psychiatric consult. She was still obtunded, had difficulty speaking after recent extubation. We will re-attempt tomorrow.
[2018-09-19] MEDS ORDERED: Acetaminophen TAB* 325 MG PO PRN (04:25)
[2018-09-19] MEDS: ZOSYN 3.375 GM Q8H per EXTENDED INFUSION IVPB SCH ×4 (06:07→16:30)
[2018-09-19 14:13] VITALS: BP 101/78
--- NOTE | 2018-09-19 14:50 | PN ---
Subjective Date of Service: 09/19/18 Interval History: Patient is awake, slightly hoarse voice. Feels better. Asking to go home. Still on one on one. Past Medical History: Unchanged from Admission Objective Active Medications: Acetaminophen (Tylenol Tab*) 650 mg PO Q6H PRN PRN Reason: FEVER/PAIN Last Admin: 09/19/18 04:37 Dose: 650 mg Piperacillin Sod/Tazobactam (Sod 3.375 gm/ Sodium Chloride) 100 mls @ 25 mls/ hr IVPB Q8H [facility] Last Admin: 09/19/18 06:07 Dose: 25 mls/hr Vital Signs - 8 hr 09/19/18 09/19/18 09/19/18 08:00 08:21 11:47 Temperature 98.4 F 98.3 F Pulse Rate 93 91 Respiratory 16 16 14 Rate Blood Pressure 112/77 101/78 (mmHg) O2 Sat by Pulse 97 94 Oximetry Oxygen Devices in Use Now: None Appearance: awake, alert no distress Eyes: No Scleral Icterus, - - EOMI Ears/Nose/Mouth/Throat: NL Teeth, Lips, Gums, Mucous Membranes Moist Neck: NL Appearance and Movements; NL JVP, Trachea Midline Respiratory: Symmetrical Chest Expansion and Respiratory Effort, Clear to Auscultation Cardiovascular: NL Sounds; No Murmurs; No JVD Abdominal: NL Sounds; No Tenderness; No Distention Extremities: No Edema Skin: No Rash or Ulcers Neurological: Alert and Oriented x 3 Result Diagrams: 09/18/18 05:25 09/18/18 05:25 Microbiology and Other Data: Microbiology 09/16/18 09:58 Urine Culture - Final Urine No Growth (<1,000 CFU/mL) 09/16/18 16:00 Nasal Screen MRSA (PCR) - Final Nasal Mrsa Not Detected Assess/Plan/Problems-Billing 23 year old female, student at [employer] from [place] who has a history of Depression with at least one reported mental health hospitalization in 2014, apparently taking Seroquel, Prozac and Depakote which she gets from [facility]. Presented with likely overdose of medication (s). - Patient Problems (1) RML pneumonia Current Visit: Yes Status: Acute Code(s): J18.1 - LOBAR PNEUMONIA, UNSPECIFIED ORGANISM SNOMED Code(s): 833533799 Comment: will D/c Zosyn change to po augmentin (2) Overdose Current Visit: Yes Status: Acute Code(s): T50.901A - POISONING BY UNSP DRUG/ MEDS/BIOL SUBST, ACCIDENTAL, INIT SNOMED Code(s): 61986353 Comment: remain one on one psych consult assessment pending . She remain one one one until seen by psych
--- NOTE | 2018-09-19 15:26 | PN ---
Subjective Date of Service: 09/19/18 Length of Stay: 3 Days Neurology is following Ms. Christensen for the evaluation and management of transient confusion. Interval History: She is concerned about missing her examination today. She has a second exam tomorrow at 2 pm. She denied suicide or homicide ideation. She shared with me some of her frustration and recent stressful events. She is dating a man and had a confrontation with him a few days ago. She is trying to study for her test and feels like she has disappointment her mother who is in [place] because she is not the top student in her class. She feels back to her normal self. She is requesting to communicate with the crisis coordinator from [place]. The bedside nurse has been in touch with the coordinator. She denied any headache, visual disturbance, or focal weakness. Her aunt and uncle flew in from [place] to see her. Review of Systems: Denied CP, SOB, or palpitations. Past Medical History: Unchanged from Admission Objective Active Medications: Acetaminophen (Tylenol Tab*) 650 mg PO Q6H PRN PRN Reason: FEVER/PAIN Last Admin: 09/19/18 04:37 Dose: 650 mg Piperacillin Sod/Tazobactam (Sod 3.375 gm/ Sodium Chloride) 100 mls @ 25 mls/ hr IVPB Q8H [facility] Last Admin: 09/19/18 06:07 Dose: 25 mls/hr Vital Signs 09/18/18 09/18/18 09/18/18 15:21 19:59 20:00 Temperature 98.3 F 97.6 F Pulse Rate 83 81 Respiratory 12 16 18 Rate Blood Pressure 113/68 114/81 (mmHg) O2 Sat by Pulse 99 99 Oximetry 09/19/18 09/19/18 09/19/18 00:15 08:00 08:21 Temperature 98.4 F 98.4 F Pulse Rate 80 93 Respiratory 16 16 16 Rate Blood Pressure 111/76 112/77 (mmHg) O2 Sat by Pulse 97 97 Oximetry 09/19/18 11:47 Temperature 98.3 F Pulse Rate 91 Respiratory 14 Rate Blood Pressure 101/78 (mmHg) O2 Sat by Pulse 94 Oximetry Intake and Output Last 24 Hours 09/17/18 09/18/18 09/19/18 09/20/18 06:59 06:59 06:59 06:59 Intake Total 1704 3865 2070 520 Output Total 1045 2753 4638 1600 Balance 659 1110 -2555 -1080 Weight 121 lb 4.068 oz 124 lb 5.451 oz Intake: IV Fluids 1560 3558 1210 D5LR W/20 MEQ KCL 976 normal saline 1560 3558 234 IVPB 77 215 abx 110 potassium 77 zosyn 105 Medicated IV 67 12 prop 67 12 Oral 80 860 520 Output: Urine 3810 1600 Lorenzo 1045 2755 815 Other: Estimated Stool Amount Medium Oxygen Devices in Use Now: None Neurology Exam: General: Well nourished female in no acute distress HEENT: Normocephalic/atraumatic, sclera anicteric, mucous membranes moist Neck: Supple Extremities: No clubbing, cyanosis, or edema Neurological Findings: Awake, Alert, Oriented x3 Speech: fluent without dysrhythmia, repetition intact Cranial Nerve: PEERL, EOM intact, VFF, no nystagmus, face symmetric bilaterally , facial sensation intact, hearing intact to finger rub bilaterally, palate elevates symmetrically, tongue midline, SCM and Trapezius s/s. Motor: s/s throughout, proximal and distal extremities x4 tone/bulk normal Sensation: intact to LT/PP bilaterally upper and lower extremities Deep Tendon Reflex: 2+ symmetric in the upper/lower extremities, Babinski - down going Finger to nose, rapid alternating movements intact without tremor, no dysdiadochokinesia Gait: intact with good arm swing and stride Result Diagrams: 09/18/18 05:25 09/18/18 05:25 Microbiology and Other Data: Microbiology 09/16/18 09:58 Urine Culture - Final Urine No Growth (<1,000 CFU/mL) 09/16/18 16:00 Nasal Screen MRSA (PCR) - Final Nasal Mrsa Not Detected Assessment/Plan 1. Toxic-encephalopathy from presumed medication side effects or overdose. Significant improvement. She has no evidence of encephalopathy on examination. She is not suicidal and denied homicide ideation. EEG was normal. I don't suspect she has a BLEACHER SULFITE PULP infection or intracranial abnormality. No further neurological work-up is recommended. I will sign off but we are available for any questions or concerns. She is waiting for psychiatric evaluation and clearance.
[2018-09-19] MEDS ORDERED: Al Hydrox/Mg Hydrox/Simet LIQ* 30 ML UDC PO PRN (16:46)
--- NOTE | 2018-09-19 16:55 | CONSULT ---
Consult Consult: Psychiatry has seen and evaluated Ms. Christensen. She meets criteria for inpatient psychiatric treatment, but is declining this currently. We will transfer her to the [facility] on involuntary 9.39 legal status. Please await full dictated assessment.
[2018-09-19] MEDS ORDERED: Amoxicillin/Clavulanate TAB* 500 MG PO SCH (21:00)
[2018-09-19] MEDS ORDERED: Divalproex DR TAB(*) 500 MG PO SCH (21:00)
--- NOTE | 2018-09-20 09:42 | DS ---
DISCHARGE SUMMARY/TRANSFER SUMMARY: DATE OF ADMISSION: 09/16/18 DATE OF TRANSFER: 09/19/18 to the inpatient psych unit. FINAL DISCHARGE DIAGNOSES: 1. Status post toxic encephalopathy secondary to drug overdose, presumed to be Depakote. 2. Suicidal attempt by drug overdose with a note "don't save me, this will be mercy." 3. Right lower lobe pneumonia. 4. Major depression. HOSPITAL COURSE: The patient presented to the emergency room on 09/16/18 for altered mental status and unresponsiveness in the emergency room. Apparently, she was brought into the emergency room via the ambulance after she was found unresponsive in her apartment. She was in her room and she talked to a friend as documented in the emergency room record in [place] the night and the morning of the incident. The patient did appear to be depressed and the friend lost contact with the patient and called 911 and on arrival to her residence, they found her unresponsive to verbal stimuli. She was responding to painful stimuli and able to protect airway and they found a suicidal note next to her, so they brought her to the emergency room and in the emergency room, her evaluation revealed that she was still having a gag reflex. Her GCS score was 9. Neurology and change control analyst service were notified and they saw her in the emergency room and her workup in the emergency room revealed a CT scan of the brain which did not show any acute pathology. EKG was tachycardia, sinus, with a rate 126 and was admitted to the intensive care under the service of Dr. Parra and the EEG was obtained and was observed very closely in the ICU. Dr. Rhodes from Neurology did see the patient in the ER who concurred that it was most likely toxic encephalopathy from Depakote versus other unknown substance as Depakote unlikely to cause this level of unconsciousness, hence he recommended EEG and Poison Control. They were contacted via the ED and recommended close observation and airway protection and monitoring for . On 09/16/18, the patient was intubated for airway protection by Dr. Parra and on 09/17/18, she was seen by Dr. Rivas from neurology service as well and apparently was extubated. The EEG which was performed on admission did not reveal any evidence of seizures and psychiatry recommendation was suggested by Neurology. The patient remained in ICU and on 09/18/18, she was transferred to the medical floor as accepted by Dr. Shweta Sanchez. On further reviewing the medical records during this hospitalization, it was documented that the patient has been getting her Prozac, Seroquel, valproic acid from [place] and she had a history of hospitalization in mental health unit in 2015 for depression and suicidal ideation. The patient was on IV Zosyn day #2 for suspected aspiration pneumonia. Today, 09/19/18, the patient was seen by Dr. Katz from Neurology who concurred that her encephalopathy most likely is toxic from side effect and overdose. Neurology did sign off the case awaiting psych evaluation. The patient was seen by me a couple of occasions earlier in the morning. I did explain to her that I will be able to clear her medically by converting her antibiotic to oral pill but I have to wait for psych evaluation given her presentation of overdose with suicidal note. She has slight vocal hoarseness but able to vocalize and express her concern. She expressed to me that she is not suicidal, it was a mistake that she did and she is concerned about her class and exam. Nonetheless , the patient was maintained on one- on-one until Psychiatry evaluated the patient and she was seen by Psychiatry today after they were not able to assess her yesterday due to lethargy and I appreciate Dr. Marcellus Whitfield who reports that the patient is unsafe for discharge and recommended involuntary 9.39 legal status. The patient was seen again later this afternoon. I did relay information to her. She was very upset. Her family in the room and the patient herself is able to communicate in Japanese. She understood and she was informed that she will not be released to her parents' custody, she will be released to the inpatient psych unit for psych evaluation. DISCHARGE MEDICATIONS: The patient will be transferred on: 1. Augmentin 500 mg twice a day. 2. Depakote 500 mg b.i.d. DISCHARGE INSTRUCTIONS: She is to remain on one-on-one until she is in the inpatient psych unit. INPATIENT DIAGNOSTIC STUDY: Blood culture negative, urine culture negative. Brain CT, 09/16/18 shows no acute pathology. Chest x-ray, 09/16/18 shows no active pulmonary disease. Chest x-ray, 09/18/18 shows right middle lobe consolidation. EEG, 09/16/18 shows abnormal EEG due to slowing and disorganization of background rhythm consistent with diffuse cerebral dysfunction with no evidence of seizures. The EKG, multiple sinus tachycardia with fairly normal QTC of 471, and that is on her last EKG from 09/16/18. [id number]/[facility] #: [id number] NAM
== END 2018-09-19 17:39 | DRG 917 ==
LOC: ED 09:06 → ICU 13:44 → MEDTELE 09-18 15:33
PROVIDERS: ADMIT Internal Medicine; ATTEND Internal Medicine
PROC: 0BH17EZ Insertion of Endotracheal Airway into Trachea, Via Natural or Artificial Opening (ICD-10-PCS; principal; 2018-09-16)
PROC: 5A1935Z Respiratory Ventilation, Less than 24 Consecutive Hours (ICD-10-PCS; 2018-09-16)
DX: T42.6X2A Poisoning by other antiepileptic and sedative-hypnotic drugs, intentional self-harm, initial encounter (principal); G92 Toxic encephalopathy; J18.9 Pneumonia, unspecified organism; J96.01 Acute respiratory failure with hypoxia; D69.6 Thrombocytopenia, unspecified; F32.9 Major depressive disorder, single episode, unspecified; R40.2422 Glasgow coma scale score 9-12, at arrival to emergency department; E16.2 Hypoglycemia, unspecified; E83.42 Hypomagnesemia; D64.9 Anemia, unspecified; Y92.039 Unspecified place in apartment as the place of occurrence of the external cause; Z79.899 Other long term (current) drug therapy
CPT/HCPCS: 36415; 70450; 71045; 80053; 80164; 80307; 80320; 80329; 81003; 81015; 82140; 82330; 82550; 82803; 83605; 83615; 83735; 84100; 84443; 84702; 85025; 85060; 85610; 85730; 87040; 87086; 87641; 93005; 94002; 94003; 95822; 99285; A9270-GY; G0480; J0610; J1644; J2250; J2310; J2543; J2704; J3475; J3480

== ENCOUNTER 2018-09-19 17:40 | Inpatient (IN) | payer OTHER ==
--- OUTSIDE RECORDS SUMMARY | 2018-09-19 19:38 | XMS REPORT | Continuity of Care Document ---
:1995 External Reference #:[id number] Demographics Phone Unavailable Preferred Language Unknown Marital Status Unknown Evangelical Affiliation Unknown Race Unknown Ethnic Group Unknown Author Name Mirian Warner Care Team Providers Name Role Phone Herbie Yost M.D. Care Team Information Classifier Tender Unavailable Payers Description No Information Available Advance Directives Description No Information Available Problems Description No Information Family History Description No Information Available Social History Type Date Description Comments Sex Unknown Allergies, Adverse Reactions, Alerts Description No Information Medications Description No Information Immunizations Description No Information Available Vital Signs Description No Information Available Results Description No Information Available Procedures Description No Information Available Encounters Description No Information Available Plan of Treatment No Information Available
[2018-09-19] MEDS ORDERED: Al Hydrox/Mg Hydrox/Simet LIQ* 30 ML UDC PO PRN (21:27)
[2018-09-19] MEDS ORDERED: Acetaminophen TAB* 325 MG PO PRN (21:27)
[2018-09-19] MEDS: Amoxicillin/Clavulanate TAB* 500 MG PO SCH (22:11)
[2018-09-19] MEDS: Divalproex DR TAB(*) 500 MG PO SCH (22:11)
[2018-09-20] MEDS: Divalproex DR TAB(*) 500 MG PO SCH ×2 (11:07→22:55)
[2018-09-20] MEDS: Amoxicillin/Clavulanate TAB* 500 MG PO SCH ×2 (11:57→22:55)
--- NOTE | 2018-09-20 13:54 | HP ---
PSYCHIATRIC HISTORY AND PHYSICAL: DATE OF ADMISSION: 09/19/18 JUSTIFICATION FOR ADMISSION: The patient is in need of 24-hour supervision and care secondary to a s uicidal overdose attempt on her own life. CHIEF COMPLAINT: "This happened over 3 days ago, I think I'm ready to go." HISTORY OF PRESENT ILLNESS: The patient is a 23-year-old single, [place] national, who is a sophomor e at [employer] who is just transferred from the medical unit following stabilization of an i ntentional overdose on some type of Libyan medication that she cannot name in Azerbaijani. The patient was initially brought to the hospital on 09/16/18 via ambulance and when the ambulance crew arrived, they found a suicide note next to her stating "don't save me, this will be mercy." She was subsequen tly admitted to the ICU and required intubation due to decreased oxygenation. She was stabilized and then transferred to the medical floor where it was discovered she had a likely aspiration pneumonia, for which she is receiving p.o. antibiotic therapy. The patient was upset about being transferred t o the mental health unit stating "that attempt was 3 days ago, that is in the past. I will never do it again." When I met with the patient, she indicates that although she has been attending college a [employer] since 2011, she is only in her sophomore year, given the fact that she has taken multiple p ersonal leaves, mostly due to mental shubham problems or various conflicts with her family in [place]. S he particularly reports a difficult relationship with both her mother and her maternal grandmother. The patient does endorse a history of bipolar disorder and indicates that the [place]yan medicine she ov erdosed on is indicated for both bipolar and schizophrenia; she could not come up with the name. She also indicates that she is still taking Depakote and is supposed to be on Prozac, but discontinued t his 3 months ago. The patient is vague during interview and I note that she has trouble taking becau se of extubation. She reports that she was curious about , but dismisses the act at this time s tating that she wants to return to [place], so that she can finish her examinations and return to [facility] for the winter break. She denies any further thoughts of harming herself. She does indicate that her family tends to place a lot of pressure on her, particularly over her grades and they often scap egoat her for things like their money problems due to fact that they are paying for her tuition. Jus t prior to the suicidal ingestion, she apparently had a fight with her mother over a video chat web s ervice. Interestingly, her aunt is town from [place] who does not speak very good Azerbaijani, but w ho indicates that the patient is safe to go home. The aunt did offer to sign paperwork ensuring the patient's safety; however, we felt that the patient warranted further evaluation. Symptomatically, th e patient endorses guilt over not doing better academically. She has also had disturbances in her ashley rgy and concentration. Interestingly, she denies difficulty with sleep, anhedonia, appetite disturba nce, psychomotor retardation, or any further suicidal ideations. The patient denies any history of v iolence and denies any recent homicidality. PAST PSYCHIATRIC HISTORY: The patient has been diagnosed with bipolar disorder both here in [place] and in her viejas [place]. Apparently, she has a therapist back in [place] whom she sees over [employer] appr oximately once weekly. Her last appointment with that person was on 09/10/18. The patient has been seen also in the mental health clinic at [place], but not since approximately 2014. The pa rocael did have a brief hospitalization here on the [facility] in 2014 under the service of Dr. Kimi stiles. At that time, she was expressing suicidal ideations and was placed on Prozac. The patient den ies abuse growing up, but does endorse a difficult relationship with her mother and grandmother. She denies any history of traumatic brain injury. SUBSTANCE ABUSE HISTORY: Significant for social alcohol use, but she denies tobacco or illicit subst ance abuse. PAST MEDICAL HISTORY: Significant for pneumonia secondary to aspiration. She is on Augmentin 500 mg b.i.d. for this issue. ALLERGIES: She has no known drug allergies. FAMILY HISTORY: The patient's maternal grandmother and mother both suffered from depression, but margret arently are not in treatment. SOCIAL HISTORY: The patient was born and raised in [place]. Her parents were together while she was g rowing up; however, they in approximately 2012. Her father is remarried and has a 2-1/2-year -old baby son who is her half brother. The patient does have a boyfriend living in [place]. She is not currently sexually active and denies any history of sexually transmitted diseases. She is not relig ious or spiritual. 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 She indicates that this is the second semester of her sophomore year despite the fact that she started attending classes at [place] in 2011. The patient has never been in the . Currently, she is living off [facility] with a roommate in an apartment. Her aunt and uncle are visiting currently from [place] and mac uriarte like to take her home. REVIEW OF SYSTEMS: The patient denies any recent weight loss or weight gain. Denies headaches. Nick es constipation, nausea, shortness of breath, chest pain, palpitations. Denies heat or cold intolera nce. Denies any pain throughout her body. Denies any muscle or joint discomfort. PHYSICAL EXAMINATION VITAL SIGNS: Blood pressure 94/65, heart rate 87, respiratory rate 16, temperature 97.5 degrees Fahr enheit, oxygen saturations are 99% on room air. HEENT: Head is normocephalic, atraumatic. NECK: Supple. CHEST: Clear to auscultation bilaterally. CARDIAC: Reveals normal heart sounds. ABDOMEN: Soft and nontender. MUSCULOSKELETAL: Exam reveals no sign of edema. NEUROLOGICAL: She is grossly intact with no focal deficits. SKIN: Warm and dry. MENTAL STATUS EXAM: The patient is a slender, young, [place] female who speaks fairly good Azerbaijani, although her voice is extremely soft due to sore throat, which is slightly secondary to intubation. She is calm, cooperative. Makes good eye contact. Speech is fluent Azerbaijani. Mood would appear to be euthymic with a somewhat odd affect. Thought process is linear, goal directed. Thought content i s significant for her desire to be discharged from the hospital. She denies any further suicidal ricki ations and she denies homicidal ideations. She denies auditory or visual hallucinations. Insight an d judgment appear to be poor given her insistence on leaving on the hospital immediately without psyc hiatric treatment. Cognitively, she is awake and alert with what would appear to be an average intell ect. LABORATORY DATA: The patient is slightly anemic with hemoglobin of 11.2, hematocrit of 33%. CBC wit hin normal limits. TSH normal at 2.19. Beta-hCG test is negative. Urinalysis reveals tra ce ketones and 1+ blood. Urine toxicology is negative for all substances tested. DIAGNOSES: As follows: [place] I: Bipolar disorder, type 1, most recent episode depressed, severe without psychotic features. [place] II: Deferred. IMPRESSION: The patient is a 23-year-old single, [place] female, who is a sophomore at [employer], who is transferred to Psychiatry from the medical unit following medical stabilization of a se rious overdose on some type of unknown [place] medication that she cannot name. The patient had just had a fight with her mother, took the overdose intentionally and left a suicide note, which was dis covered by responding ambulance personnel. The patient is minimizing her symptoms and the nature of the overdose indicating that she is fine and ready to go back to school, finish her exams and return to [place] for the winter break. Her aunt is present and vouches for her safety. Despite these factor s, however, I do believe the severity of the overdose requires further evaluation and we need to pay particular attention to getting her reenrolled in campus mental health treatment at [facility]. While she is here, I will continue treatment with antibiotic a s well as Depakote therapy. PLAN: The patient is admitted to the adult behavioral health unit where she is placed on q.15-minute checks for her own safety. I am strongly advising that she avail herself of all milieu activities i ncluding individual and group psychotherapy. We will resume Depakote at 500 mg p.o. b.i.d. and likel y be drawing therapeutic level to make sure that it is in the therapeutic range. We will contact the crisis management services at [facility] and will be looking to hook her up with [facility] health services. When we feel that she is safe, we will discharge her back to [place] where she ca n complete her academic year and then return home for the holiday. [id number]/[facility] #: [id number]
--- NOTE | 2018-09-20 15:35 | CONS ---
INDIVIDUAL PSYCHOTHERAPY NOTE: DATE OF CONSULT: 09/20/18 RELEVANT HISTORY: Danya comes to this curriculum writer to discuss current and historical difficulties, which have recently comminated in her suicide attempts leading to her subsequent admission to [facility]. She describes ingesting prescribed medication from her provider in [place] of undisclosed volume that appears to be a mood stabilizer of some sort. She was unsure of name and what that would be in terms of [place]an translation. She describes essentially being motivated by revenge factors both regarding her family of origin as well as her estranged boyfriend, who is to another woman. She describes seeing for boyfriend for approximately a years time back in [place] and who had recently broken up with her. She describes being motivated out of anger and reaction to how dismissive he was when she disclosed having thoughts of suicide. Apparently stating that, "people that talk about suicide do not intent to kill themselves. " She also describes a family history that is demonstrative of recurrent suicidal threats. Both she, her mother, and her grandmother have all engaged in posturing of some sort in regards to suicide. This has led when she having a somewhat permissive attitude regarding suicide, describing how her current motivations reflect this angry revenge scenario rather than that of depression. She described in detail how her grandmother and she at one point in time had rushed out of their home to her mother's apartment apparently after she had phoned them to tell them she was going to jump off the roof of the apartment building. They found her safe and sound in her own apartment with discussion addressing again permissive attitude regarding . Danya currently presents with fair affect that is variable with discussion. She denies ongoing thoughts and feelings about suicide and is forthcoming about relevant history in an honest and open fashion. She is adamant about asking for immediate discharge citing how she has an aunt and uncle who have flown here from [place] to provide structure and safety for her. 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 She describes taking several gap here to address mental health issues. When she further describes dismissive family attitudes regarding mental health and how this has been treatment impediment for her historically. Discussion addressed both acute concerns regarding lethality as well as more enduring characteristics regarding permissive attitudes about and dyeing. Although she is responsive and well engaged in clinical rapport, she is quite determined and steadfast in her request to be discharged, despite efforts to engage otherwise. [id number]/[facility] #: [id number] NAM
[2018-09-21 08:57] VITALS: BP 124/55
[2018-09-21] MEDS: Divalproex DR TAB(*) 500 MG PO SCH (11:58)
[2018-09-21] MEDS: Amoxicillin/Clavulanate TAB* 500 MG PO SCH (11:58)
--- NOTE | 2018-09-21 22:11 | DS ---
DISCHARGE SUMMARY: DATE OF ADMISSION: 09/19/18 DATE OF DISCHARGE: 09/21/18 DISCHARGE DIAGNOSES: [place] I: Bipolar disorder type 1, most recent episode, depressed, moderate. [place] II: Deferred. CONDITION AT THE TIME OF DISCHARGE: Improved. The patient is calm, cooperative , interactive. She has steadfastly denied any further suicidal ideations throughout her hospitalization. Her aunt and uncle, who reside in [place], [place], have been visiting and vouched for her safety. They are in favor of the discharge plan. The patient has followup in the community. In fact, she is going this afternoon to the [facility] at [facility] for her intake. The patient is tolerating her Depakote well. Her respiratory status has been improving with oral antibiotic and she is future oriented stating that she wants to complete her final exams and then go to stay with her aunt and uncle for the holiday. She is willing to follow through with [facility] even upon her return to the [facility] for the spring. At this time, she is appropriately requesting discharge and we feel that she can receive adequate services in a less restrictive outpatient setting. MENTAL STATUS EXAM AT THE TIME OF DISCHARGE: The patient is a slender [place] female, who speaks fairly good [place]. Speech has a normal rate and volume. The patient is calm and cooperative, making good eye contact. Her [place]an is fluent. Mood is euthymic with a full affect. Thought process is linear, goal directed. Thought content is significant for her desire to be discharged from the hospital. She denies suicidal or homicidal ideation. She denies auditory or visual hallucinations. Insight and judgement appeared to be fair given her willingness to follow up with [facility] after discharge. Cognitively, she is awake and alert with what would appear to be an average intellect. DISCHARGE INSTRUCTIONS TO THE PATIENT: A. Medications. She is taking Depakote 500 mg p.o. b.i.d. She also takes Bactrim double strength 1 tablet p.o. b.i.d. for the next 5 days. B. Diet is regular. C. Activities as tolerated. The patient is a nonsmoker. There are no laboratory or diagnostic studies pending at the time of discharge. D. Followup care. The patient will be going this afternoon, 09/21/18, to the [facility], where her intake is scheduled for 2:30 p.m. E. Substance abuse followup is nonapplicable. HOSPITAL COURSE: Part A: Reason for admission: The patient is a 23-year-old single [place] national, who is a sophomore at [employer] who is just transferred from the medical unit following stabilization of an intensional overdose on some type of [place] medication that she cannot name in [place]. The patient was initially brought to the hospital on 04/21/18 via ambulance and the when the ambulance crew arrived on scene, they report finding a suicide note next to her stating "do not save me, this will be mercy." She was subsequently admitted to the ICU and required intubation due to decreased oxygenation. She was stabilized and transferred to the medical floor, where it was discovered she had a likely aspiration pneumonia, for which she is continuing to receive antibiotic therapy. The patient was upset about being transferred to the mental health unit stating "that attempt was 3 days ago, that is in the past, I will never do it again." When I met with the patient, indicates it, although she has been attending college at [employer] since 2011, she is only in her sophomore year given the fact that she has taken multiple personal leaves, mostly due to mental health problems or various conflicts with her family in [place]. She particularly reports a difficult relationship with both her mother and her maternal grandmother. The patient does endorse a history of bipolar disorder and indicates that the [place] medicine she overdosed on is indicated for both bipolar and schizophrenia. She could not come up with the name of this medication, however. She does indicate that she is still taking Depakote and was supposed to be taking Prozac, although she self - discontinued this approximately 3 months ago. The patient is vague during interview and I noted that she has trouble talking because of extubation. She reports that she was curious about , but dismisses the act at this time stating that she wants to return to [place] so that she can finish her examinations and return to [place] for winter break. She denied any further thoughts of harming herself. She does indicate that her family tends to place a lot of pressure on her, particularly over grades and they often scapegoat her for things like the money problem due to the fact that they are paying for her tuition. Just prior to suicidal ingestion, she apparently had a fight with her mother over a video [employer] web service. Interestingly, her aunt is in town from [place], who does not speak very good Sierra Leonean, but who indicates that the patient is safe to go home. The aunt did offer to sign paper work ensuring the patient's safety; however, we felt that the patient warranted further evaluation. Symptomatically, the patient endorsed guilt over not doing better academically. She also had disturbances in energy and concentration. Interestingly, she denied difficulty with sleep, anhedonia, appetite disturbance , psychomotor retardation or any further suicidal ideation. The patient denied any history of violence and denied any recent homicidality. Part B: Psychiatric treatment rendered: The patient was admitted to the adult behavioral science unit where she was placed on q.15-minute checks for her own safety. We continued her Depakote 500 mg twice daily and also continued the antibiotic that she was placed on for aspiration pneumonia. The patient was adequate participant in milieu activities, although she continued to strenuously deny her need for inpatient care. She is very much focused on her upcoming exam. She did indicate that she was quite upset with her mother and grandmother and made this overdose in an attempt to get back at them. We pointed out that it may not be the healthiest plan for her to return to [place] over the winter break given her ongoing interpersonal difficulties within her family, instead she created a plan to spend the holiday break her aunt and uncle in [place], who are agreeable with this. The patient steadfastly denied thoughts of harming herself. She is future oriented and we feel that she would be better served in a less restrictive environment. She is being seen for followup this very afternoon at the [facility]. [id number]/[facility] #: [id number] NAM
== END 2018-09-21 13:30 | disposition home or self-care (01) | DRG 885 ==
LOC: BSU 17:40
PROVIDERS: ADMIT Psychiatry & Neurology Psychiatry; ATTEND Psychiatry & Neurology Psychiatry
DX: F31.4 Bipolar disorder, current episode depressed, severe, without psychotic features (principal); J69.0 Pneumonitis due to inhalation of food and vomit; F20.9 Schizophrenia, unspecified; J02.9 Acute pharyngitis, unspecified; D64.9 Anemia, unspecified; T50.902A Poisoning by unspecified drugs, medicaments and biological substances, intentional self-harm, initial encounter; Z91.5 Personal history of self-harm; Z81.8 Family history of other mental and behavioral disorders; Z72.89 Other problems related to lifestyle; Y92.9 Unspecified place or not applicable
CPT/HCPCS: 99222; 99238; A9270-GY